=== PATIENT | male | born 1950 | race Caucasian/White ===

== ENCOUNTER 2023-09-03 20:57 | Inpatient (IN) | payer MEDICARE, OTHER ==
[2023-09-03 21:27] LABS: ABG Base Excess -12.2 mmol/L; ABG HCO3 13 mmol/L (21-25); ABG Oxygen Saturation 100.7 % (94-97); ABG PCO2 26 mmHg (35-45); ABG PO2 400 mmHg (83-108); ABG TCO2 13 mmol/L (19-24); Allen Test Performed? Yes
--- NOTE | 2023-09-03 21:27 | ED ---
General Adult HPI - General Chief complaint: Shortness of Breath Stated complaint: BENJAMÍN Time Seen by Provider: 09/03/23 21:05 Source: patient, EMS Mode of arrival: EMS - History of Present Illness Initial comments: Dictation was produced using [employer] dictation software. please excuse any grammatical, word or spelling errors. Chief Complaint: 73-year-old male presents to the emergency department as a transfer from [place] for higher level of care History of Present Illness: Patient 73-year-old male he is a poor historian due to clinical status. Patient is a 73-year-old male presents to the ER via transfer from [facility]. According to transfer documentation patient was brought here for worsening shortness of breath. He initially presented to [facility] where he was found to be altered. Apparently he has not gotten out of bed for several days. Patient had extensive workup performed at [facility]. He was found to have elevated lactic acid level 9.8. He had pH of 7.1 bicarb of 11 and pCO2 of 34.9. There was concern for metabolic acidosis. No white count. Elevated creatinine of 3.5 with a BUN of 33. Patient states he is short of breath. Denies any chest pain does he does report history of coronary artery disease. He is currently on BiPAP. Chest x-ray shows airspace infiltrate left lung base. Patient according documentation was given a dose of Rocephin, IV fluids and Ativan. The ROS documented in this emergency department record has been reviewed and confirmed by me. Those systems with pertinent positive or negative responses have been documented in the HPI. All other systems are other negative and/or noncontributory. - Related Data Allergies Allergy/AdvReac Type Severity Reaction Status Date / Time No Known Allergies Allergy Verified 09/03/23 21:10 Review of Systems ROS Statement: Those systems with pertinent positive or pertinent negative responses have been documented in the HPI. ROS Other: All systems not noted in ROS Statement are negative. General Exam - General Exam Comments Initial Comments: PHYSICAL EXAM: General Impression: Lethargic, distressed male, dyspneic HEENT: Normocephalic atraumatic, extra-ocular movements intact, pupils equal and reactive to light bilaterally, mucous membranes moist. Cardiovascular: Heart regular rate and rhythm Chest: Tachypneic, 2 word sentences, diffuse rhonchi with auscultation to the lungs bilaterally Abdomen: abdomen soft, non-tender, non-distended, no organomegaly Musculoskeletal: Pulses present and equal in all extremities, no peripheral edema Motor: no focal deficits noted Neurological: CN II-XII grossly intact, no focal motor or sensory deficits noted Skin: Intact with no visualized rashes Psych: Normal affect and mood Course Vital Signs 09/03/23 20:58 Temperature 97.9 F Pulse Rate 124 H Respiratory 42 H Rate Blood Pressure 138/83 O2 Sat by Pulse 91 L Oximetry - Reevaluation(s) Reevaluation #1: 09/03/23 23:02 Case was discussed with Jose, midlevel provider for the ICU at approximately 11:00 PM. He will come and evaluate the patient to determine if patient meets ICU admission criteria. EKG Findings - EKG Comments: EKG Findings:: My EKG interpretation: Ventricular rate 124, SC interval 155, cures 99, QTc 47 interpretation of rhythm is difficult secondary to artifact. There does appear to be a P wave for every QRS suggesting sinus arrhythmia despite irregularity.. No SC prolongation, no QTC prolongation, no ST or T-wave changes noted. EKG for comparison. EKG is nonspecific Procedures - Intubation Sedative: Etomidate Paralytic: Rocuronium Laryngoscope: fiber optic video scope Size: 3 ET Tube Size: 8 ET Tube Uncuffed: Yes Tube Secured Depth (cm): 24 Tube Secured Location: lips Tube Placement Confirmation: visualized tube passing through cords, equal breath sounds bilaterally, no breath sounds over epigastrium, confirmation by capnometry Patient Tolerated Procedure: well Intubation Complications: none - Sepsis Sepsis Focused Exam #1 Time Sepsis Criteria Met: 23:36 Sepsis Focused Exam Date: 09/03/23 Sepsis Focused Exam Time: 23:36 Sepsis Focused Exam Complete: Yes Vital Signs & RN Notes Reviewed: Yes Capillary Refill: < 2 Seconds: Fingers, Toes Peripheral Pulses: Normal: Radial (R), Radial (L), Posterior Tibialis (R), Posterior Tibialis (L), Dorsalis Pedis (R), Dorsalis Pedis (L) Skin Color: Normal for Patient Respiratory Exam: rhonchi Cardiovascular Exam: tachycardia Medical Decision Making - Medical Decision Making Was pt. sent in by a medical professional or institution (, PA, GIS PHYSICAL SCIENTIST, urgent care, hospital, or longterm...) When possible be specific @ -Sent in outside emergency department Did you speak to anyone other than the patient for history (EMS, parent, family, police, friend...)? What history was obtained from this source @ -No Did you review nursing and triage notes (agree or disagree)? Why? @ -I reviewed and agree with nursing and triage notes Were old charts reviewed (outside hosp., previous admission, EMS record, old EKG, old radiological studies, urgent care reports/EKG's, longterm records)? Report findings @ -Transfer documentation reviewed from [place] Differential Diagnosis (chest pain, altered mental status, abdominal pain women, abdominal pain men, vaginal bleeding, musculoskeletal, weakness, fever, dyspnea, syncope, headache, dizziness, GI bleed, back pain, seizure, CVA, palpatations, mental health)? @ -Differential Dyspnea: Coronary syndrome, arrhythmia, tamponade, asthma, COPD, pulmonary embolism, pneumonia, pneumothorax, pulmonary effusion, anaphylaxis, diabetic ketoacidosis, flailed chest, pulmonary contusion, diaphragmatic rupture, anemia, neuromuscular, this is not meant to be an all-inclusive list. EKG interpreted by me (3pts min.). @ -See above X-rays interpreted by me (1pt min.). @ -X-ray of the chest shows no acute processes CT interpreted by me (1pt min.). @ -None done U/S interpreted by me (1pt. min.). @ -None done What testing was considered but not performed or refused? (CT, X-rays, U/S, labs)? Why? @ -None What meds were considered but not given or refused? Why? @ -None Was smoking cessation discussed for >3mins.? @ -No Were there social determinants of health that impacted care today? How? (Homelessness, low income, unemployed, alcoholism, drug addiction, transportation, low edu. Level, literacy, decrease access to med. care, nursing home, rehab)? @ -No Was there de-escalation of care discussed even if they declined (Discuss DNR or withdrawal of care, Hospice)? DNR status @ -No What co-morbidities impacted this encounter? (DM, HTN, Smoking, COPD, CAD, Cancer, CVA, ARF, Chemo, Hep., AIDS, mental health diagnosis, sleep apnea, morbid obesity)? @ -None Was patient admitted / discharged? Hospital course, mention meds given and route, prescriptions, significant lab abnormalities, going to OR and other pertinent info. @ -73-year-old male with unknown past medical history presents to the ER for respiratory failure, altered mental status. He is a transfer from [facility]. Transfer documentation was reviewed. Patient found to have significant lactic acidosis, elevated troponin. There is concern of perhaps may be some acute left lower lung infiltrate. Vital signs upon arrival shows heart rate of 124, respiratory to 42. Patient 91% on BiPAP. ABGs obtained showing metabolic acidosis. Laboratory evaluation obtained. Leukocytosis of 23.6 of unclear . Coag panel is unremarkable. Metabolic panel shows bicarb of 12 w ith a gap of 15, lactic acidosis of 6.9. Elevated renal function creatinine 3.61 with unknown baseline renal function. Troponin 0.082, brain nitric peptide is 13,700. X-ray does not show any abnormalities. Patient given bicarb IV fluids and monitored in the ER for approximately 2 hours and 30 minutes. Reevaluated bedside at 1120 p.m. Patient's respiratory condition did not significantly improve. Given that patient significantly dyspneic there is concern that patient would have worsening respiratory failure. Decision was made along with ICU team to have patient intubated. Code status was discussed with patient prior to intubation he states that he is full code. Patient on bicarb drip. Given broad-spectrum antibiotics. Did you discuss the management of the patient with other professionals (professionals i.e. , PA, GIS PHYSICAL SCIENTIST, lab, RT, psych nurse, social media designer, computer support specialist, teacher, ordnance corps officer, upper caser)? Give summary @ -See above Was critical care preformed (if so, how long)? @ -yes, 77 minutes Undiagnosed new problem with uncertain prognosis? @ -No Drug Therapy requiring intensive monitoring for toxicity (Heparin, Nitro, Insulin, Cardizem)? @ -No Were any procedures done? @ -See above Diagnosis/symptom? Acute, or Chronic, or Acute on Chronic? Uncomplicated (without systemic symptoms) or Complicated (systemic symptoms)? @ -Respiratory failure Side effects of treatment? @ -No Exacerbation, Progression, or Severe Exacerbation? @ -No Poses a threat to life or bodily function? How? (Chest pain, [place], [place], pneumonia, PE, COPD, DKA, ARF, appy, cholecystitis, CVA, Diverticulitis, Homicidal, Suicidal, threat to staff... and all critical care pts) @ -yes - Lab Data Result diagrams: 09/03/23 21:11 09/03/23 21:11 Lab Results 09/03/23 09/03/23 09/03/23 Range/Units 21:11 21:11 21:11 WBC 23.6 H (3.8-10.6) k/uL RBC 4.62 (4.30-5.90) m/uL Hgb 11.0 L (13.0-17.5) gm/dL Hct 36.7 L (39.0-53.0) % MCV 79.6 L (80.0-100.0) fL MCH 23.7 L (25.0-35.0) pg MCHC 29.8 L (31.0-37.0) g/dL RDW 16.0 H (11.5-15.5) % Plt Count 164 (150-450) k/uL MPV 8.2 Neutrophils % 90 % Lymphocytes % 3 % Monocytes % 5 % Eosinophils % 0 % Basophils % 0 % Neutrophils # 21.3 H (1.3-7.7) k/uL Lymphocytes # 0.6 L (1.0-4.8) k/uL Monocytes # 1.2 H (0-1.0) k/uL Eosinophils # 0.0 (0-0.7) k/uL Basophils # 0.1 (0-0.2) k/uL Hypochromasia Marked Microcytosis Slight PT 12.4 (10.0-12.5) sec INR 1.2 H (<1.2) APTT 24.9 (22.0-30.0) sec Sample Site ABG pH (7.35-7.45) ABG pCO2 (35-45) mmHg ABG pO2 (83-108) mmHg ABG HCO3 (21-25) mmol/L ABG Total CO2 (19-24) mmol/L ABG O2 Saturation (94-97) % ABG Base Excess mmol/L Aleksander Test FiO2 % Sodium 136 L (137-145) mmol/L Potassium 3.6 (3.5-5.1) mmol/L Chloride 109 H (98-107) mmol/L Carbon Dioxide 12 L (22-30) mmol/L Anion Gap 15 mmol/L BUN 32 H (9-20) mg/dL Creatinine 3.61 H (0.66-1.25) mg/dL Est GFR (CKD-EPI)AfAm 18 (>60 ml/min/1.73 sqM) Est GFR (CKD-EPI)NonAf 16 (>60 ml/min/1.73 sqM) Glucose 140 H (74-99) mg/dL Plasma Lactic Acid Bryant (0.7-2.0) mmol/L Calcium 7.5 L (8.4-10.2) mg/dL Magnesium 2.1 (1.6-2.3) mg/dL Total Bilirubin 1.2 (0.2-1.3) mg/dL AST 48 (17-59) U/L ALT 31 (4-49) U/L Alkaline Phosphatase 121 (38-126) U/L Troponin I (0.000-0.034) ng/mL NT-Pro-B Natriuret Pep 51496 pg/mL Total Protein 6.2 L (6.3-8.2) g/dL Albumin 3.0 L (3.5-5.0) g/dL 09/03/23 09/03/23 09/03/23 Range/Units 21:11 21:11 21:22 WBC (3.8-10.6) k/uL RBC (4.30-5.90) m/uL Hgb (13.0-17.5) gm/dL Hct (39.0-53.0) % MCV (80.0-100.0) fL MCH (25.0-35.0) pg MCHC (31.0-37.0) g/dL RDW (11.5-15.5) % Plt Count (150-450) k/uL MPV Neutrophils % % Lymphocytes % % Monocytes % % Eosinophils % % Basophils % % Neutrophils # (1.3-7.7) k/uL Lymphocytes # (1.0-4.8) k/uL Monocytes # (0-1.0) k/uL Eosinophils # (0-0.7) k/uL Basophils # (0-0.2) k/uL Hypochromasia Microcytosis PT (10.0-12.5) sec INR (<1.2) APTT (22.0-30.0) sec Sample Site L Rad ABG pH 7.30 L (7.35-7.45) ABG pCO2 26 L (35-45) mmHg ABG pO2 400 H (83-108) mmHg ABG HCO3 13 L (21-25) mmol/L ABG Total CO2 13 L (19-24) mmol/L ABG O2 Saturation 100.7 H (94-97) % ABG Base Excess -12.2 mmol/L Aleksander Test Yes FiO2 100 % Sodium (137-145) mmol/L Potassium (3.5-5.1) mmol/L Chloride (98-107) mmol/L Carbon Dioxide (22-30) mmol/L Anion Gap mmol/L BUN (9-20) mg/dL Creatinine (0.66-1.25) mg/dL Est GFR (CKD-EPI)AfAm (>60 ml/min/1.73 sqM) Est GFR (CKD-EPI)NonAf (>60 ml/min/1.73 sqM) Glucose (74-99) mg/dL Plasma Lactic Acid Bryant 6.9 H* (0.7-2.0) mmol/L Calcium (8.4-10.2) mg/dL Magnesium (1.6-2.3) mg/dL Total Bilirubin (0.2-1.3) mg/dL AST (17-59) U/L ALT (4-49) U/L Alkaline Phosphatase (38-126) U/L Troponin I 0.082 H* (0.000-0.034) ng/mL NT-Pro-B Natriuret Pep pg/mL Total Protein (6.3-8.2) g/dL Albumin (3.5-5.0) g/dL Disposition Clinical Impression: Respiratory failure Disposition: ADMITTED IP TO THIS [facility] Condition: Critical Referrals: Nonstaff,Physician [Primary Care Provider] - 1-2 days Decision Time: 22:29
[2023-09-03] MEDS: DEXTROSE 5% IN WATER 1,000 ML with SODIUM BICARB (1 MEQ/ML) 150 ML IV SCH (21:44)
[2023-09-03] MEDS ORDERED: VANCOMYCIN IV PER PHARMACY 1 EACH MISC MISCELLANE PRN (21:45)
[2023-09-03] MEDS: SODIUM BICARB 8.4% 50 ML SYR (1 MEQ/ML) IV STA ×2 (21:47→23:02)
--- NOTE | 2023-09-03 21:51 | XR ---
EXAMINATION TYPE: XR chest 1V portable DATE OF EXAM: 09/03/2023 Comparison: None Clinical History: 73-year-old male with shortness of breath, dyspnea Findings: Heart mildly enlarged. Limited by body habitus. Tortuous/ectatic thoracic aorta. Low lung volumes wit h crowded vascular markings. Mild patchy interstitial densities in the bilateral lower lungs. No pleu ral effusion. Impression: 1. Limited by body habitus and hypoventilatory changes. Mild patchy densities in the lower lungs coul d represent atelectasis or early infiltrates. 2. Borderline heart size.
[2023-09-03 21:53] LABS: AST 48 U/L (17-59); African American GFR (CKD) 18 (>60 ml/min/1.73 sqM); Alkaline Phosphatase 121 U/L (38-126); Anion Gap 15 mmol/L; Blood Urea Nitrogen 32 mg/dL (9-20); Calcium 7.5 mg/dL (8.4-10.2); Carbon Dioxide 12 mmol/L (22-30); Chloride 109 mmol/L (98-107); Glucose 140 mg/dL (74-99); Magnesium 2.1 mg/dL (1.6-2.3); Non-African American GFR(CKD) 16 (>60 ml/min/1.73 sqM); Potassium 3.6 mmol/L (3.5-5.1); Sodium 136 mmol/L (137-145); Total Bilirubin 1.2 mg/dL (0.2-1.3); Total Protein 6.2 g/dL (6.3-8.2)
[2023-09-03] MEDS: PIPERACILLIN-TAZOBACTAM 3.375 GM in SODIUM CHLORIDE 0.9% 100 ML IVPB SCH (21:53)
[2023-09-03] MEDS: SODIUM CHLORIDE 0.9% 1,000 ML IV STA (21:56)
[2023-09-03 21:58] LABS: NT-Pro-B-Type Natriuretic Pept 13700 pg/mL
[2023-09-03 22:00] LABS: ALT 31 U/L (4-49)
[2023-09-03 22:10] LABS: Basophils # (A) 0.1 k/uL (0-0.2); Basophils % (A) 0 %; Eosinophils % (A) 0 %; HCT 36.7 % (39.0-53.0); Hypochromasia Marked; Lymphocytes # (A) 0.6 k/uL (1.0-4.8); Lymphocytes % (A) 3 %; MCH 23.7 pg (25.0-35.0); MCHC 29.8 g/dL (31.0-37.0); MCV 79.6 fL (80.0-100.0); Mean Platelet Volume 8.2; Microcytosis Slight; Monocytes # (A) 1.2 k/uL (0-1.0); Monocytes % (A) 5 %; Neutrophils # (A) 21.3 k/uL (1.3-7.7); Neutrophils % (A) 90 %; Platelet Count 164 k/uL (150-450); RBC 4.62 m/uL (4.30-5.90); WBC 23.6 k/uL (3.8-10.6)
[2023-09-03] MEDS: HEPARIN SOD,PORK IN 0.45% NACL 25,000 UNIT in 0.45% NACL 1 250ML.BAG IV SCH (23:05)
[2023-09-03 23:08] LABS: INR 1.2 (<1.2); Partial Thromboplastin Time 24.9 sec (22.0-30.0); Prothrombin Time 12.4 sec (10.0-12.5)
[2023-09-03] MEDS: HEPARIN SODIUM 1,000 UN/ML (10ML VL) IV ONE (23:10)
[2023-09-03] MEDS: ETOMIDATE 2 MG/ML 10 ML VIAL IVP STA (23:23)
[2023-09-03] MEDS: ROCURONIUM 10 MG/ML (5 ML VIAL) IV STA (23:24)
[2023-09-03] MEDS ORDERED: NALOXONE 0.4 MG/ML 1 ML VIAL IV PRN (23:30)
[2023-09-03] MEDS: SODIUM CHLORIDE 0.9% 1,000 ML IV SCH (23:41)
[2023-09-04 00:12] LABS: Appearance,Urine Turbid (Clear); Bacteria,Urine Few /hpf; Bilirubin,Urine Negative (Negative); Blood,Urine Large (Negative); Color,Urine Yellow; Glucose,Urine (UA) Trace (Negative); Ketones,Urine Negative (Negative); Leukocyte Esterase,Urine Large (Negative); Mucus,Urine Rare /hpf; Nitrite,Urine Negative (Negative); Protein,Urine 3+ (Negative); RBC,Urine 65 /hpf (0-5); Urobilinogen,Urine <2.0 mg/dL (<2.0); WBC,Urine >182 /hpf (0-5)
--- NOTE | 2023-09-04 00:48 | ED ---
Medical Decision Making - Lab Data Result diagrams: 09/03/23 21:11 09/03/23 21:11 Lab Results 09/03/23 09/03/23 09/03/23 Range/Units 21:11 21:11 21:11 WBC 23.6 H (3.8-10.6) k/uL RBC 4.62 (4.30-5.90) m/uL Hgb 11.0 L (13.0-17.5) gm/dL Hct 36.7 L (39.0-53.0) % MCV 79.6 L (80.0-100.0) fL MCH 23.7 L (25.0-35.0) pg MCHC 29.8 L (31.0-37.0) g/dL RDW 16.0 H (11.5-15.5) % Plt Count 164 (150-450) k/uL MPV 8.2 Neutrophils % 90 % Lymphocytes % 3 % Monocytes % 5 % Eosinophils % 0 % Basophils % 0 % Neutrophils # 21.3 H (1.3-7.7) k/uL Lymphocytes # 0.6 L (1.0-4.8) k/uL Monocytes # 1.2 H (0-1.0) k/uL Eosinophils # 0.0 (0-0.7) k/uL Basophils # 0.1 (0-0.2) k/uL Hypochromasia Marked Microcytosis Slight PT 12.4 (10.0-12.5) sec INR 1.2 H (<1.2) APTT 24.9 (22.0-30.0) sec Sample Site ABG pH (7.35-7.45) ABG pCO2 (35-45) mmHg ABG pO2 (83-108) mmHg ABG HCO3 (21-25) mmol/L ABG Total CO2 (19-24) mmol/L ABG O2 Saturation (94-97) % ABG Base Excess mmol/L Aleksander Test FiO2 % Sodium 136 L (137-145) mmol/L Potassium 3.6 (3.5-5.1) mmol/L Chloride 109 H (98-107) mmol/L Carbon Dioxide 12 L (22-30) mmol/L Anion Gap 15 mmol/L BUN 32 H (9-20) mg/dL Creatinine 3.61 H (0.66-1.25) mg/dL Est GFR (CKD-EPI)AfAm 18 (>60 ml/min/1.73 sqM) Est GFR (CKD-EPI)NonAf 16 (>60 ml/min/1.73 sqM) Glucose 140 H (74-99) mg/dL Lactic Ac Sepsis Rflx Plasma Lactic Acid Bryant (0.7-2.0) mmol/L Calcium 7.5 L (8.4-10.2) mg/dL Magnesium 2.1 (1.6-2.3) mg/dL Total Bilirubin 1.2 (0.2-1.3) mg/dL AST 48 (17-59) U/L ALT 31 (4-49) U/L Alkaline Phosphatase 121 (38-126) U/L Troponin I (0.000-0.034) ng/mL NT-Pro-B Natriuret Pep 97967 pg/mL Total Protein 6.2 L (6.3-8.2) g/dL Albumin 3.0 L (3.5-5.0) g/dL 09/03/23 09/03/23 09/03/23 Range/Units 21:11 21:11 21:22 WBC (3.8-10.6) k/uL RBC (4.30-5.90) m/uL Hgb (13.0-17.5) gm/dL Hct (39.0-53.0) % MCV (80.0-100.0) fL MCH (25.0-35.0) pg MCHC (31.0-37.0) g/dL RDW (11.5-15.5) % Plt Count (150-450) k/uL MPV Neutrophils % % Lymphocytes % % Monocytes % % Eosinophils % % Basophils % % Neutrophils # (1.3-7.7) k/uL Lymphocytes # (1.0-4.8) k/uL Monocytes # (0-1.0) k/uL Eosinophils # (0-0.7) k/uL Basophils # (0-0.2) k/uL Hypochromasia Microcytosis PT (10.0-12.5) sec INR (<1.2) APTT (22.0-30.0) sec Sample Site L Rad ABG pH 7.30 L (7.35-7.45) ABG pCO2 26 L (35-45) mmHg ABG pO2 400 H (83-108) mmHg ABG HCO3 13 L (21-25) mmol/L ABG Total CO2 13 L (19-24) mmol/L ABG O2 Saturation 100.7 H (94-97) % ABG Base Excess -12.2 mmol/L Aleksander Test Yes FiO2 100 % Sodium (137-145) mmol/L Potassium (3.5-5.1) mmol/L Chloride (98-107) mmol/L Carbon Dioxide (22-30) mmol/L Anion Gap mmol/L BUN (9-20) mg/dL Creatinine (0.66-1.25) mg/dL Est GFR (CKD-EPI)AfAm (>60 ml/min/1.73 sqM) Est GFR (CKD-EPI)NonAf (>60 ml/min/1.73 sqM) Glucose (74-99) mg/dL Lactic Ac Sepsis Rflx Plasma Lactic Acid Bryant 6.9 H* (0.7-2.0) mmol/L Calcium (8.4-10.2) mg/dL Magnesium (1.6-2.3) mg/dL Total Bilirubin (0.2-1.3) mg/dL AST (17-59) U/L ALT (4-49) U/L Alkaline Phosphatase (38-126) U/L Troponin I 0.082 H* (0.000-0.034) ng/mL NT-Pro-B Natriuret Pep pg/mL Total Protein (6.3-8.2) g/dL Albumin (3.5-5.0) g/dL 09/03/23 Range/Units 21:53 WBC (3.8-10.6) k/uL RBC (4.30-5.90) m/uL Hgb (13.0-17.5) gm/dL Hct (39.0-53.0) % MCV (80.0-100.0) fL MCH (25.0-35.0) pg MCHC (31.0-37.0) g/dL RDW (11.5-15.5) % Plt Count (150-450) k/uL MPV Neutrophils % % Lymphocytes % % Monocytes % % Eosinophils % % Basophils % % Neutrophils # (1.3-7.7) k/uL Lymphocytes # (1.0-4.8) k/uL Monocytes # (0-1.0) k/uL Eosinophils # (0-0.7) k/uL Basophils # (0-0.2) k/uL Hypochromasia Microcytosis PT (10.0-12.5) sec INR (<1.2) APTT (22.0-30.0) sec Sample Site ABG pH (7.35-7.45) ABG pCO2 (35-45) mmHg ABG pO2 (83-108) mmHg ABG HCO3 (21-25) mmol/L ABG Total CO2 (19-24) mmol/L ABG O2 Saturation (94-97) % ABG Base Excess mmol/L Aleksander Test FiO2 % Sodium (137-145) mmol/L Potassium (3.5-5.1) mmol/L Chloride (98-107) mmol/L Carbon Dioxide (22-30) mmol/L Anion Gap mmol/L BUN (9-20) mg/dL Creatinine (0.66-1.25) mg/dL Est GFR (CKD-EPI)AfAm (>60 ml/min/1.73 sqM) Est GFR (CKD-EPI)NonAf (>60 ml/min/1.73 sqM) Glucose (74-99) mg/dL Lactic Ac Sepsis Rflx Y Plasma Lactic Acid Bryant (0.7-2.0) mmol/L Calcium (8.4-10.2) mg/dL Magnesium (1.6-2.3) mg/dL Total Bilirubin (0.2-1.3) mg/dL AST (17-59) U/L ALT (4-49) U/L Alkaline Phosphatase (38-126) U/L Troponin I (0.000-0.034) ng/mL NT-Pro-B Natriuret Pep pg/mL Total Protein (6.3-8.2) g/dL Albumin (3.5-5.0) g/dL Disposition Clinical Impression: Respiratory failure Disposition: ADMITTED IP TO THIS HOSP Condition: Critical Procedures - Sepsis Sepsis Focused Exam #1 Time Sepsis Criteria Met: 23:36
--- NOTE | 2023-09-04 00:51 | ED ---
Medical Decision Making - Lab Data Result diagrams: 09/03/23 21:11 09/03/23 21:11 Lab Results 09/03/23 09/03/23 09/03/23 Range/Units 21:11 21:11 21:11 WBC 23.6 H (3.8-10.6) k/uL RBC 4.62 (4.30-5.90) m/uL Hgb 11.0 L (13.0-17.5) gm/dL Hct 36.7 L (39.0-53.0) % MCV 79.6 L (80.0-100.0) fL MCH 23.7 L (25.0-35.0) pg MCHC 29.8 L (31.0-37.0) g/dL RDW 16.0 H (11.5-15.5) % Plt Count 164 (150-450) k/uL MPV 8.2 Neutrophils % 90 % Lymphocytes % 3 % Monocytes % 5 % Eosinophils % 0 % Basophils % 0 % Neutrophils # 21.3 H (1.3-7.7) k/uL Lymphocytes # 0.6 L (1.0-4.8) k/uL Monocytes # 1.2 H (0-1.0) k/uL Eosinophils # 0.0 (0-0.7) k/uL Basophils # 0.1 (0-0.2) k/uL Hypochromasia Marked Microcytosis Slight PT 12.4 (10.0-12.5) sec INR 1.2 H (<1.2) APTT 24.9 (22.0-30.0) sec Sample Site ABG pH (7.35-7.45) ABG pCO2 (35-45) mmHg ABG pO2 (83-108) mmHg ABG HCO3 (21-25) mmol/L ABG Total CO2 (19-24) mmol/L ABG O2 Saturation (94-97) % ABG Base Excess mmol/L Aleksander Test FiO2 % Sodium 136 L (137-145) mmol/L Potassium 3.6 (3.5-5.1) mmol/L Chloride 109 H (98-107) mmol/L Carbon Dioxide 12 L (22-30) mmol/L Anion Gap 15 mmol/L BUN 32 H (9-20) mg/dL Creatinine 3.61 H (0.66-1.25) mg/dL Est GFR (CKD-EPI)AfAm 18 (>60 ml/min/1.73 sqM) Est GFR (CKD-EPI)NonAf 16 (>60 ml/min/1.73 sqM) Glucose 140 H (74-99) mg/dL Lactic Ac Sepsis Rflx Plasma Lactic Acid Bryant (0.7-2.0) mmol/L Calcium 7.5 L (8.4-10.2) mg/dL Magnesium 2.1 (1.6-2.3) mg/dL Total Bilirubin 1.2 (0.2-1.3) mg/dL AST 48 (17-59) U/L ALT 31 (4-49) U/L Alkaline Phosphatase 121 (38-126) U/L Troponin I (0.000-0.034) ng/mL NT-Pro-B Natriuret Pep 66916 pg/mL Total Protein 6.2 L (6.3-8.2) g/dL Albumin 3.0 L (3.5-5.0) g/dL 09/03/23 09/03/23 09/03/23 Range/Units 21:11 21:11 21:22 WBC (3.8-10.6) k/uL RBC (4.30-5.90) m/uL Hgb (13.0-17.5) gm/dL Hct (39.0-53.0) % MCV (80.0-100.0) fL MCH (25.0-35.0) pg MCHC (31.0-37.0) g/dL RDW (11.5-15.5) % Plt Count (150-450) k/uL MPV Neutrophils % % Lymphocytes % % Monocytes % % Eosinophils % % Basophils % % Neutrophils # (1.3-7.7) k/uL Lymphocytes # (1.0-4.8) k/uL Monocytes # (0-1.0) k/uL Eosinophils # (0-0.7) k/uL Basophils # (0-0.2) k/uL Hypochromasia Microcytosis PT (10.0-12.5) sec INR (<1.2) APTT (22.0-30.0) sec Sample Site L Rad ABG pH 7.30 L (7.35-7.45) ABG pCO2 26 L (35-45) mmHg ABG pO2 400 H (83-108) mmHg ABG HCO3 13 L (21-25) mmol/L ABG Total CO2 13 L (19-24) mmol/L ABG O2 Saturation 100.7 H (94-97) % ABG Base Excess -12.2 mmol/L Aleksander Test Yes FiO2 100 % Sodium (137-145) mmol/L Potassium (3.5-5.1) mmol/L Chloride (98-107) mmol/L Carbon Dioxide (22-30) mmol/L Anion Gap mmol/L BUN (9-20) mg/dL Creatinine (0.66-1.25) mg/dL Est GFR (CKD-EPI)AfAm (>60 ml/min/1.73 sqM) Est GFR (CKD-EPI)NonAf (>60 ml/min/1.73 sqM) Glucose (74-99) mg/dL Lactic Ac Sepsis Rflx Plasma Lactic Acid Bryant 6.9 H* (0.7-2.0) mmol/L Calcium (8.4-10.2) mg/dL Magnesium (1.6-2.3) mg/dL Total Bilirubin (0.2-1.3) mg/dL AST (17-59) U/L ALT (4-49) U/L Alkaline Phosphatase (38-126) U/L Troponin I 0.082 H* (0.000-0.034) ng/mL NT-Pro-B Natriuret Pep pg/mL Total Protein (6.3-8.2) g/dL Albumin (3.5-5.0) g/dL 09/03/23 Range/Units 21:53 WBC (3.8-10.6) k/uL RBC (4.30-5.90) m/uL Hgb (13.0-17.5) gm/dL Hct (39.0-53.0) % MCV (80.0-100.0) fL MCH (25.0-35.0) pg MCHC (31.0-37.0) g/dL RDW (11.5-15.5) % Plt Count (150-450) k/uL MPV Neutrophils % % Lymphocytes % % Monocytes % % Eosinophils % % Basophils % % Neutrophils # (1.3-7.7) k/uL Lymphocytes # (1.0-4.8) k/uL Monocytes # (0-1.0) k/uL Eosinophils # (0-0.7) k/uL Basophils # (0-0.2) k/uL Hypochromasia Microcytosis PT (10.0-12.5) sec INR (<1.2) APTT (22.0-30.0) sec Sample Site ABG pH (7.35-7.45) ABG pCO2 (35-45) mmHg ABG pO2 (83-108) mmHg ABG HCO3 (21-25) mmol/L ABG Total CO2 (19-24) mmol/L ABG O2 Saturation (94-97) % ABG Base Excess mmol/L Aleksander Test FiO2 % Sodium (137-145) mmol/L Potassium (3.5-5.1) mmol/L Chloride (98-107) mmol/L Carbon Dioxide (22-30) mmol/L Anion Gap mmol/L BUN (9-20) mg/dL Creatinine (0.66-1.25) mg/dL Est GFR (CKD-EPI)AfAm (>60 ml/min/1.73 sqM) Est GFR (CKD-EPI)NonAf (>60 ml/min/1.73 sqM) Glucose (74-99) mg/dL Lactic Ac Sepsis Rflx Y Plasma Lactic Acid Bryant (0.7-2.0) mmol/L Calcium (8.4-10.2) mg/dL Magnesium (1.6-2.3) mg/dL Total Bilirubin (0.2-1.3) mg/dL AST (17-59) U/L ALT (4-49) U/L Alkaline Phosphatase (38-126) U/L Troponin I (0.000-0.034) ng/mL NT-Pro-B Natriuret Pep pg/mL Total Protein (6.3-8.2) g/dL Albumin (3.5-5.0) g/dL Disposition Clinical Impression: Respiratory failure Disposition: ADMITTED IP TO THIS HOSP Condition: Critical Procedures - Central Line Placement Left IJ Consent Obtained: verbal consent, written consent, emergent situation Patient Placed on Monitor/Pulse Ox: Yes Prep: mask, gown, gloves Central Line Prep: Chlorhexidine scrub Local Anesthesia Used: Lidocaine 2% Ultrasound Used for Placement: Yes Central Line Lumen Inserted: triple Bloods Obtained for Lab: No Central Line Position: good blood return, all ports aspirated, flushed, capped, sutured in place with 3-0 nylon Dressing Applied: Tegaderm Post Procedure X-Ray: tip of catheter in good position Patient Tolerated Procedure: well Complications: none - Sepsis Sepsis Focused Exam #1 Time Sepsis Criteria Met: 23:36
[2023-09-04] MEDS: VANCOMYCIN 2,000 MG in SODIUM CHLORIDE 0.9% 500 ML 500 ML IVPB ONE ×2 (01:35→01:41)
[2023-09-04 02:16] LABS: Glucose,Whole Blood 217 mg/dL (70-110)
--- NOTE | 2023-09-04 02:23 | P.CNPUL ---
History of Present Illness Consult date: 09/04/23 Requesting physician: German Joy Reason for consult: other (ICU management) Chief complaint: Respiratory distress; transferred from [facility] History of present illness: Patient was transferred from [facility] late last night, reportedly for worsening shortness of breath. There is concerns for sepsis. According to the patient's son, patient has history of high cholesterol, stents in his heart, diabetes mellitus, COPD, troubles urinating and has chronic indwelling urinary catheter. He gets frequent urinary tract infections. I did talk to the patient's son over the phone. Patient has reportedly been feeling unwell over the last 2 to 3 days. Very weak and bed dependent. Has had reduced appetite, isolated vomiting episode. No reported fevers while at home. When the son came home from work yesterday afternoon, noted his father to be confused and "breat taryn funny". Patient was initially brought to [facility] for evaluation. Found to be profoundly acidotic and possibly septic. Transferred to [facility]. My initial evaluation was in conjunction with the ER provider, patient is in trauma bay 2. He is in some respiratory distress, on BiPAP. BiPAP settings are 14/5 and FiO2 of 50%. He is in respiratory distress. Respiratory rate is in the high 40s. He is alert, but unable to participate in interview due to his dyspnea. I recommended that the patient be intubated due to impending respiratory failure. Initial ventilator settings were assist-control, respiratory rate of 20, tidal volume 450, FiO2 of 100% and PEEP of 5. Postintubation chest x-ray shows endotracheal tube tip in adequate position above the arnold. Orogastric tube courses within the gastric fundus. There is now a left subclavian triple-lumen catheter with the tip near the cavoatrial junction. There are some minimal bibasilar opacities, likely atelectasis. No obvious focal infiltrates or pneumonia. No pleural effusions or pneumothoraces. His metabolic acidosis has marginally improved from outside facility. He received 2 A of sodium bicarbonate earlier in the emergency department, and placed on a sodium bicarb infusion at 50 MLS per hour.. Most recent ABG shows a PaO2 of 250, pCO2 of 45, pH of 7.22. Patient's respiratory rate was then increased to 24 and sodium bicarb drip infusion increased to 100 MLS per hour. There is obvious concern for sepsis, possible urinary source. Urinalysis demonstrating leukocytes and few bacteria. He is empirically covered on broad-spectrum antibiotics with Zosyn and vancomycin. Lactic acid level as high as 10 at outside facility and is down to 6.4. I am told he received a total of 3 L crystalloid fluid. Normal saline is currently infusing at 120 MLS per hour. Blood pressures currently normotensive. CBC: WBC count 23.6, hemoglobin 11, hematocrit 36.7, platelets 164. CMP: Sodium 136, potassium 3.6, chloride 109, serum bicarb 12, BUN 32, creatinine 3.61, glucose 140. LFTs not elevated. Troponin 0.082. NT proBNP 13,700. EKG shows sinus tachycardia with a rate of 124 bpm, frequent PACs. No obvious acute ischemic changes. He has previously been started on a heparin infusion. Currently afebrile. Prognosis is guarded. I did call and update patient's son on patient's current condition. He is a listed decision maker, and patient is currently a full code. Review of Systems ROS unobtainable: due to endotracheal tube Medications and Allergies Allergies Allergy/AdvReac Type Severity Reaction Status Date / Time No Known Allergies Allergy Verified 09/04/23 09:57 Physical Exam Vitals: Vital Signs Temp Pulse Resp BP Pulse Ox FiO2 09/04/23 01:11 137 H 24 99/61 100 09/04/23 01:08 80 09/04/23 01:02 70 09/03/23 23:34 100 09/03/23 23:33 133 H 18 127/74 100 09/03/23 20:58 97.9 F 124 H 42 H 138/83 91 L Intake and Output 09/03/23 09/03/23 09/04/23 14:59 22:59 06:59 Other: Weight 115.666 kg GENERAL EXAM: Anxious appearing, in respiratory distress, respiratory rate is in the high 40s with accessory muscle use and conversational dyspnea. Respiratory therapy is setting up for rapid sequence intubation by ER provider HEAD: Normocephalic and atraumatic EYES: Normal reaction of pupils, equal size. NOSE: Clear with pink turbinates. THROAT: No erythema or exudates. NECK: No masses, no JVD. CHEST: No chest wall deformity. LUNGS: Equal air entry with no crackles, wheeze, rhonchi or dullness. On BiPAP with current settings 14/5 and FiO2 of 50%. SpO2 is 92%. Respiratory rate is in the high 40s. Tidal volumes ranging from 900-1200. In respiratory distress. Accessory muscle use noted. CVS: S1 and S2 normal with soft systolic murmur, irregular rhythm. No other extra heart sounds ABDOMEN: Obese abdomen, active bowel sounds, soft without guarding or rigidity. Without palpable masses, hepatosplenomegaly, or abdominal distention. SPINE: No scoliosis or deformity SKIN: No rashes CENTRAL NERVOUS SYSTEM: No focal deficits, tone is normal in all 4 extremities. EXTREMITIES: There is no peripheral edema, clubbing, or cyanosis. Peripheral pulses are intact. Results - Laboratory Findings CBC and BMP: 09/04/23 09:35 09/04/23 03:32 ABG ABG pH 7.30 (7.35-7.45) L 09/03/23 21:22 ABG pCO2 26 mmHg (35-45) L 09/03/23 21:22 ABG pO2 400 mmHg (83-108) H 09/03/23 21:22 ABG O2 Saturation 100.7 % (94-97) H 09/03/23 21:22 PT/INR, D-dimer PT 12.4 sec (10.0-12.5) 09/03/23 21:11 INR 1.2 (<1.2) H 09/03/23 21:11 Abnormal lab findings: Abnormal Labs 09/03/23 09/03/23 09/03/23 21:11 21:11 21:11 WBC 23.6 H Hgb 11.0 L Hct 36.7 L MCV 79.6 L MCH 23.7 L MCHC 29.8 L RDW 16.0 H Neutrophils # 21.3 H Lymphocytes # 0.6 L Monocytes # 1.2 H INR 1.2 H ABG pH ABG pCO2 ABG pO2 ABG HCO3 ABG Total CO2 ABG O2 Saturation Sodium 136 L Chloride 109 H Carbon Dioxide 12 L BUN 32 H Creatinine 3.61 H Glucose 140 H Plasma Lactic Acid Bryant Calcium 7.5 L Troponin I Total Protein 6.2 L Albumin 3.0 L Urine Protein Urine Glucose (UA) Urine Blood Ur Leukocyte Esterase Urine RBC Urine WBC Urine WBC Clumps Urine Bacteria Urine Mucus 09/03/23 09/03/2309/02/24 21:11 21:11 21:22 WBC Hgb Hct MCV MCH MCHC RDW Neutrophils # Lymphocytes # Monocytes # INR ABG pH 7.30 L ABG pCO2 26 L ABG pO2 400 H ABG HCO3 13 L ABG Total CO2 13 L ABG O2 Saturation 100.7 H Sodium Chloride Carbon Dioxide BUN Creatinine Glucose Plasma Lactic Acid Bryant 6.9 H* Calcium Troponin I 0.082 H* Total Protein Albumin Urine Protein Urine Glucose (UA) Urine Blood Ur Leukocyte Esterase Urine RBC Urine WBC Urine WBC Clumps Urine Bacteria Urine Mucus 09/03/23 09/04/23 23:40 00:05 WBC Hgb Hct MCV MCH MCHC RDW Neutrophils # Lymphocytes # Monocytes # INR ABG pH ABG pCO2 ABG pO2 ABG HCO3 ABG Total CO2 ABG O2 Saturation Sodium Chloride Carbon Dioxide BUN Creatinine Glucose Plasma Lactic Acid Bryant 6.4 H* Calcium Troponin I Total Protein Albumin Urine Protein 3+ H Urine Glucose (UA) Trace H Urine Blood Large H Ur Leukocyte Esterase Large H Urine RBC 65 H Urine WBC >182 H Urine WBC Clumps Many H Urine Bacteria Few H Urine Mucus Rare H - Diagnostic Findings Chest x-ray: image reviewed Assessment and Plan Assessment: Suspect component of sepsis, source is currently under investigation Severe anion gap metabolic acidosis and lactic acidosis Possible urinary tract infection Acute dyspnea and impending respiratory failure, requiring intubation to the mechanical ventilator. Postintubation chest x-ray shows endotracheal tube tip in adequate position above the arnold. Orogastric tube courses within the gastric fundus. There is now a left subclavian triple-lumen catheter, with the tip near the cavoatrial junction. There are some minimal bibasilar opacities, likely atelectasis. No obvious focal infiltrates or pneumonia. No pleural effusions or pneumothoraces. Acute leukocytosis Sinus tachycardia, with frequent premature supraventricular complexes Suspect acute kidney injury, baseline creatinine is unknown Elevated troponin, likely secondary to type II LA and supply/demand, previously started on heparin infusion. History of frequent urinary tract infections and chronic indwelling urinary catheter History of prostate disorder History of coronary artery disease History of hyperlipidemia History of diabetes mellitus type 2 Obesity, with a BMI of 35.6 kg/m Plan: Patient's medications, labs, imaging reviewed Patient is currently intubated to mechanical ventilator, respiratory rate has been increased to 24 breaths/min. Continue on these current ventilator settings and repeat ABG later this morning Ventilator order set added. Utilize propofol for sedation to maintain a RASS of 0 to -1. Increase sodium bicarbonate infusion to 100 MLS per hour. Given additional 1 L normal saline bolus Blood pressure currently normotensive not requiring vasopressors Lactic acid level trending down, currently 6.4 Pancultures are pending. Preliminary urinalysis positive for leukocytes and few bacteria. Patient has history of frequent urinary tract infections and chronic indwelling urinary catheter. Exchange urinary catheter if not done so already. Patient is covered on broad-spectrum antibiotics Cardiology was asked to evaluate this patient in the emergency department. Troponins are trending. Patient was previously started on heparin infusion per protocol. Echocardiogram pending for the morning. My supervising physician, Dr. Godoy was updated about the patient's case, no further recommendations at this point in time. Patient will be admitted to the intensive care unit once bed available. Prognosis is guarded secondary to above. I did update patient's son in regards to recent developments and clinical course. I answered all of his questions in depth. Patient is a full code. I have personally seen and examined the patient, performed the documentation and the assessment and plan as written. Number of minutes spent on the visit:20 This is a joint evaluation was done along with the nurse practitioner. this evaluation was done more than 30 minutes. Critically ill male patient came in with urine tract infection and sepsis and multisystem organ failure. The patient is currently in the bed on the mechanical ventilator. The patient is hypotensive and in shock state. The patient was resuscitated with a total of 4.5 L of IV fluids with crystalloids and the patient is currently on a bicarb infusion. The patient is on norepinephrine running at 0.5 mcg/kg/min. Urine output is essentially minimal at this point in time. Garrison catheter is in place. The patient has sustained also an acute kidney injury. The patient remains on the mechanical ventilator. Sedated on propofol. Chest x-ray was noted and there is no acute pulm infiltration. Lactic acid levels have been downtrending for now. The patient is covered with broad-spectrum antibiotics with Zosyn and vancomycin. For now, we will continue ventilator support. Blood gases were noted. Chest x-ray was noted. Will continue fluid resuscitation. Will continue bicarb infusion. Will continue pressors and will add vasopressin. Will monitor renal function. Obtain ultrasound of kidneys. Will continue with same antibiotic coverage. On a separate note, earlier this morning the patient went into SVT. The patient was given adenosine and the patient was subsequently cardioverted. Currently in atrial fibrillation with rapid ventricular response and the patient is receiving amiodarone loading. She is currently on IV heparin drip. Will proceed with an echocardiogram. Lines have been established. Condition is critical. Will continue to follow make further recommendations based on his progress. Evaluation was done more than 30 minutes. Time with Patient: Greater than 30
[2023-09-04] MEDS: SODIUM CHLORIDE 0.9% 1,000 ML IV ONE ×3 (02:54→13:17)
--- NOTE | 2023-09-04 02:59 | XR ---
EXAM: XR Chest, 1 View CLINICAL HISTORY: ITS.REASON XR Reason: et tube placement TECHNIQUE: Frontal view of the chest. COMPARISON: 09/03/2023 IMPRESSION: The ET tube terminates 5.1 cm from the arnold
--- NOTE | 2023-09-04 03:10 | XR ---
EXAM: XR Chest, 1 View CLINICAL HISTORY: ITS.REASON XR Reason: central line placement TECHNIQUE: Frontal view of the chest. COMPARISON: No relevant prior studies available. IMPRESSION: Central line in good position. ET tube in good position.
--- NOTE | 2023-09-04 03:28 | P.HPIM ---
History of Present Illness H&P Date: 09/04/23 Patient is a 73-year-old male with a PMH of COPD, type II DM, CAD, BPH with chronic indwelling Garrison, hypertension, hyperlipidemia, who was transferred from [facility] for shortness of breath and sepsis. The history was obtained from the chart and from the ED provider as the patient was intubated at the time of interview and attempts to reach the family via phone were unsuccessful. The patient had reportedly been not feeling well for the past 2 to 3 days and had decreased oral intake and gradually worsening shortness of breath. The son who reportedly came home to find the patient in some respiratory distress at which point EMS was activated and the patient was taken to [facility]. The patient was noted to have severe acidosis with concerns for sepsis and impending respiratory failure and subsequently transferred to [facility]. Upon arrival the patient was in severe respiratory distress and hypoxic respiratory failure. He was subsequently intubated and placed on mechanical ventilation. Chest x-ray in the emergency room revealed no acute abnormalities aside from cardiomegaly. EKG revealed sinus tachycardia with APCs at 124 bpm with T wave flattening in the inferior leads III and aVF as reviewed by me. Laboratory evaluation was remarkable for WBC count 23.6, hemoglobin 11.0, platelet count 164, sodium 136, chloride 109, CO2 12, BUN 32, creatinine 3.61, lactic acid 6.9, anion gap 15, creatinine kinase 952, troponin 0.082, proBNP 13,700, with UA consistent with UTI. ED documentation reviewed and case discussed with ED provider. Review of systems: Unable to perform due to patient being intubated Physical examination: Vital signs reviewed General: Intubated elderly male, no distress, appears at stated age Derm: no unusual rashes/lesions, warm Head: atraumatic, normocephalic, symmetric Eyes: anicteric sclera, pupils equal round reactive to light ENT: Nose and ears atraumatic Neck: No cervical lymphadenopathy, trachea midline, supple Mouth: no lip lesion, mucus membranes moist Cardiovascular: S1S2 reg, no murmur, positive dorsalis pedis pulse bilateral, no edema Lungs: CTA bilateral, no rhonchi, no rales, no accessory muscle use Abdominal: soft, nontender to palpation, no guarding Ext: no gross muscle atrophy, no contractures, Neuro: unable to assess Psych: unable to assess Assessment: Acute hypoxic respiratory failure, unclear etiology, differential includes pneumonia versus PE Sepsis secondary to UTI Anion gap metabolic acidosis, suspected due to severe lactic acidosis Elevated troponin, suspect due to type II OK in setting of acute illness Kidney injury, acute versus chronic Imaging: Chest x-ray in the emergency room revealed no acute abnormalities aside from cardiomegaly. EKG revealed sinus tachycardia with APCs at 124 bpm with T wave flattening in the inferior leads III and aVF as reviewed by me. Data Review: Laboratory evaluation was remarkable for WBC count 23.6, hemoglobin 11.0, platelet count 164, sodium 136, chloride 109, CO2 12, BUN 32, creatinine 3.61, lactic acid 6.9, anion gap 15, creatinine kinase 952, troponin 0.082, proBNP 13,700, with UA consistent with UTI. Plan: Continue with high intensity heparin infusion for empiric treatment of PE at this time Unable to get CT angiogram due to patient's kidney injury Order VQ scan Patient initiated on bicarbonate infusion Admitted to medical ICU with telecommunications switch technician consulted and ventilator bundle Continue with broad-spectrum antibiotic coverage with vancomycin and Zosyn at this time Cardiology and nephrology consulted for kidney injury and elevated troponin Follow-up blood, urine, and sputum cultures Trend troponin DVT prophylaxis: Heparin infusion The patient is admitted with an anticipated greater than 2 midnight stay for evaluation of respiratory failure, sepsis CODE STATUS: Full Code Anticipated discharge place: Home Past Medical History - Past Family History Father Family Medical History: Unable to Obtain (due to patient being intubated) Medications and Allergies Allergies Allergy/AdvReac Type Severity Reaction Status Date / Time No Known Allergies Allergy Verified 09/03/23 21:10 Physical Exam Vitals: Vital Signs Temp Pulse Resp BP Pulse Ox FiO2 09/04/23 01:35 137 H 20 101/52 99 09/04/23 01:11 137 H 24 99/61 100 09/04/23 01:08 80 09/04/23 01:02 70 09/03/23 23:34 100 09/03/23 23:33 133 H 18 127/74 100 09/03/23 20:58 97.9 F 124 H 42 H 138/83 91 L Intake and Output 09/03/23 09/03/23 09/04/23 14:59 22:59 06:59 Other: Weight 115.666 kg Results CBC & Chem 7: 09/03/23 21:11 09/03/23 21:11 Labs: Abnormal Lab Results - Last 24 Hours (Table) 09/03/23 09/03/23 09/03/23 Range/Units 21:11 21:11 21:11 WBC 23.6 H (3.8-10.6) k/uL Hgb 11.0 L (13.0-17.5) gm/dL Hct 36.7 L (39.0-53.0) % MCV 79.6 L (80.0-100.0) fL MCH 23.7 L (25.0-35.0) pg MCHC 29.8 L (31.0-37.0) g/dL RDW 16.0 H (11.5-15.5) % Neutrophils # 21.3 H (1.3-7.7) k/uL Lymphocytes # 0.6 L (1.0-4.8) k/uL Monocytes # 1.2 H (0-1.0) k/uL INR 1.2 H (<1.2) ABG pH (7.35-7.45) ABG pCO2 (35-45) mmHg ABG pO2 (83-108) mmHg ABG HCO3 (21-25) mmol/L ABG Total CO2 (19-24) mmol/L ABG O2 Saturation (94-97) % Sodium 136 L (137-145) mmol/L Chloride 109 H (98-107) mmol/L Carbon Dioxide 12 L (22-30) mmol/L BUN 32 H (9-20) mg/dL Creatinine 3.61 H (0.66-1.25) mg/dL Glucose 140 H (74-99) mg/dL POC Glucose (mg/dL) (70-110) mg/dL Plasma Lactic Acid Bryant (0.7-2.0) mmol/L Calcium 7.5 L (8.4-10.2) mg/dL Creatine Kinase (55-170) U/L Troponin I (0.000-0.034) ng/mL Total Protein 6.2 L (6.3-8.2) g/dL Albumin 3.0 L (3.5-5.0) g/dL Urine Protein (Negative) Urine Glucose (UA) (Negative) Urine Blood (Negative) Ur Leukocyte Esterase (Negative) Urine RBC (0-5) /hpf Urine WBC (0-5) /hpf Urine WBC Clumps (None) /hpf Urine Bacteria (None) /hpf Urine Mucus (None) /hpf 09/03/23 09/03/23 09/03/23 Range/Units 21:11 21:11 21:11 WBC (3.8-10.6) k/uL Hgb (13.0-17.5) gm/dL Hct (39.0-53.0) % MCV (80.0-100.0) fL MCH (25.0-35.0) pg MCHC (31.0-37.0) g/dL RDW (11.5-15.5) % Neutrophils # (1.3-7.7) k/uL Lymphocytes # (1.0-4.8) k/uL Monocytes # (0-1.0) k/uL INR (<1.2) ABG pH (7.35-7.45) ABG pCO2 (35-45) mmHg ABG pO2 (83-108) mmHg ABG HCO3 (21-25) mmol/L ABG Total CO2 (19-24) mmol/L ABG O2 Saturation (94-97) % Sodium (137-145) mmol/L Chloride (98-107) mmol/L Carbon Dioxide (22-30) mmol/L BUN (9-20) mg/dL Creatinine (0.66-1.25) mg/dL Glucose (74-99) mg/dL POC Glucose (mg/dL) (70-110) mg/dL Plasma Lactic Acid Bryant 6.9 H* (0.7-2.0) mmol/L Calcium (8.4-10.2) mg/dL Creatine Kinase 952 H (55-170) U/L Troponin I 0.082 H* (0.000-0.034) ng/mL Total Protein (6.3-8.2) g/dL Albumin (3.5-5.0) g/dL Urine Protein (Negative) Urine Glucose (UA) (Negative) Urine Blood (Negative) Ur Leukocyte Esterase (Negative) Urine RBC (0-5) /hpf Urine WBC (0-5) /hpf Urine WBC Clumps (None) /hpf Urine Bacteria (None) /hpf Urine Mucus (None) /hpf 09/03/23 09/03/23 09/04/23 Range/Units 21:22 23:40 00:05 WBC (3.8-10.6) k/uL Hgb (13.0-17.5) gm/dL Hct (39.0-53.0) % MCV (80.0-100.0) fL MCH (25.0-35.0) pg MCHC (31.0-37.0) g/dL RDW (11.5-15.5) % Neutrophils # (1.3-7.7) k/uL Lymphocytes # (1.0-4.8) k/uL Monocytes # (0-1.0) k/uL INR (<1.2) ABG pH 7.30 L (7.35-7.45) ABG pCO2 26 L (35-45) mmHg ABG pO2 400 H (83-108) mmHg ABG HCO3 13 L (21-25) mmol/L ABG Total CO2 13 L (19-24) mmol/L ABG O2 Saturation 100.7 H (94-97) % Sodium (137-145) mmol/L Chloride (98-107) mmol/L Carbon Dioxide (22-30) mmol/L BUN (9-20) mg/dL Creatinine (0.66-1.25) mg/dL Glucose (74-99) mg/dL POC Glucose (mg/dL) (70-110) mg/dL Plasma Lactic Acid Bryant 6.4 H* (0.7-2.0) mmol/L Calcium (8.4-10.2) mg/dL Creatine Kinase (55-170) U/L Troponin I (0.000-0.034) ng/mL Total Protein (6.3-8.2) g/dL Albumin (3.5-5.0) g/dL Urine Protein 3+ H (Negative) Urine Glucose (UA) Trace H (Negative) Urine Blood Large H (Negative) Ur Leukocyte Esterase Large H (Negative) Urine RBC 65 H (0-5) /hpf Urine WBC >182 H (0-5) /hpf Urine WBC Clumps Many H (None) /hpf Urine Bacteria Few H (None) /hpf Urine Mucus Rare H (None) /hpf 09/04/23 Range/Units 02:15 WBC (3.8-10.6) k/uL Hgb (13.0-17.5) gm/dL Hct (39.0-53.0) % MCV (80.0-100.0) fL MCH (25.0-35.0) pg MCHC (31.0-37.0) g/dL RDW (11.5-15.5) % Neutrophils # (1.3-7.7) k/uL Lymphocytes # (1.0-4.8) k/uL Monocytes # (0-1.0) k/uL INR (<1.2) ABG pH (7.35-7.45) ABG pCO2 (35-45) mmHg ABG pO2 (83-108) mmHg ABG HCO3 (21-25) mmol/L ABG Total CO2 (19-24) mmol/L ABG O2 Saturation (94-97) % Sodium (137-145) mmol/L Chloride (98-107) mmol/L Carbon Dioxide (22-30) mmol/L BUN (9-20) mg/dL Creatinine (0.66-1.25) mg/dL Glucose (74-99) mg/dL POC Glucose (mg/dL) 217 H (70-110) mg/dL Plasma Lactic Acid Bryant (0.7-2.0) mmol/L Calcium (8.4-10.2) mg/dL Creatine Kinase (55-170) U/L Troponin I (0.000-0.034) ng/mL Total Protein (6.3-8.2) g/dL Albumin (3.5-5.0) g/dL Urine Protein (Negative) Urine Glucose (UA) (Negative) Urine Blood (Negative) Ur Leukocyte Esterase (Negative) Urine RBC (0-5) /hpf Urine WBC (0-5) /hpf Urine WBC Clumps (None) /hpf Urine Bacteria (None) /hpf Urine Mucus (None) /hpf
[2023-09-04 03:46] LABS: Basophils # (A) 0.1 k/uL (0-0.2); Basophils % (A) 0 %; Eosinophils % (A) 0 %; HCT 32.9 % (39.0-53.0); Hypochromasia Marked; Lymphocytes # (A) 0.8 k/uL (1.0-4.8); Lymphocytes % (A) 5 %; MCHC 30.4 g/dL (31.0-37.0); MCV 79.2 fL (80.0-100.0); Mean Platelet Volume 10.2; Microcytosis Slight; Monocytes # (A) 0.7 k/uL (0-1.0); Monocytes % (A) 5 %; Neutrophils # (A) 13.3 k/uL (1.3-7.7); Neutrophils % (A) 89 %; Platelet Count 150 k/uL (150-450); RBC 4.16 m/uL (4.30-5.90)
[2023-09-04] MEDS: IPRATROPIUM-ALBUTEROL 3 ML NEB INHALATION SCH (04:10)
[2023-09-04 04:53] LABS: African American GFR (CKD) 16 (>60 ml/min/1.73 sqM); Anion Gap 10 mmol/L; Blood Urea Nitrogen 36 mg/dL (9-20); Carbon Dioxide 18 mmol/L (22-30); Chloride 108 mmol/L (98-107); Glucose 208 mg/dL (74-99); Magnesium 2.1 mg/dL (1.6-2.3); Non-African American GFR(CKD) 14 (>60 ml/min/1.73 sqM); Potassium 4.3 mmol/L (3.5-5.1); Sodium 136 mmol/L (137-145)
[2023-09-04 06:12] LABS: Allen Test Performed? Yes
[2023-09-04 06:13] LABS: ABG HCO3 18 mmol/L (21-25); ABG PCO2 38 mmHg (35-45); ABG PH 7.29 (7.35-7.45); ABG PO2 124 mmHg (83-108); ABG TCO2 19 mmol/L (19-24)
[2023-09-04 06:14] LABS: Allen Test Performed? Yes
[2023-09-04 06:15] LABS: ABG PCO2 45 mmHg (35-45); ABG PH 7.22 (7.35-7.45); ABG PO2 250 mmHg (83-108)
[2023-09-04 06:16] LABS: ABG HCO3 18 mmol/L (21-25); ABG TCO2 20 mmol/L (19-24)
[2023-09-04] MEDS: NOREPINEPHRINE 4 MG in SODIUM CHLORIDE 0.9% 250 ML IV SCH (06:35)
--- NOTE | 2023-09-04 06:53 | P.PCN ---
Date of Procedure: 09/04/23 Preoperative Diagnosis: Sepsis, septic shock, acute hypoxemic respiratory failure Postoperative Diagnosis: Sepsis, septic shock, acute hypoxemic respiratory failure Procedure(s) Performed: Insertion of a left radial arterial line Indications for Procedure: Continuous blood pressure monitoring and frequent blood draws Description of Procedure: Informed consent was obtained, and a procedural timeout was performed . The patient was placed in supine position. The left radial region was prepared in a sterile fashion, and a sterile drape was applied. The left radial artery was palpated, easily cannulated, and a guidewire was placed. A Cook catheter was inserted over the guidewire, and the guidewire was removed. There was good arterial blood flow, good arterial waveform, and no complications. The line was secured with using a 3-0 silk suture. Arterial line insertion. This was a joint evaluation that was done along with the nurse practitioner. No complications.
[2023-09-04] MEDS: HEPARIN SODIUM 1,000 UN/ML (10ML VL) IV PRN (07:01)
[2023-09-04] MEDS: ADENOSINE 3 MG/ML 2 ML VIAL IVP ONE ×2 (09:45→09:48)
[2023-09-04 10:03] LABS: Basophils # (A) 0.1 k/uL (0-0.2); Basophils % (A) 0 %; Eosinophils # (A) 0.1 k/uL (0-0.7); Eosinophils % (A) 0 %; HGB 9.7 gm/dL (13.0-17.5); Hypochromasia Marked; Lymphocytes # (A) 0.8 k/uL (1.0-4.8); Lymphocytes % (A) 6 %; MCH 24.6 pg (25.0-35.0); MCHC 31.4 g/dL (31.0-37.0); MCV 78.5 fL (80.0-100.0); Mean Platelet Volume 10.1; Microcytosis Slight; Monocytes # (A) 0.7 k/uL (0-1.0); Monocytes % (A) 5 %; Neutrophils # (A) 12.2 k/uL (1.3-7.7); Neutrophils % (A) 87 %; Platelet Count 140 k/uL (150-450); Poikilocytosis Slight; RBC 3.96 m/uL (4.30-5.90); RDW 15.8 % (11.5-15.5)
[2023-09-04 10:27] LABS: African American GFR (CKD) 14 (>60 ml/min/1.73 sqM); Anion Gap 13 mmol/L; Blood Urea Nitrogen 36 mg/dL (9-20); Calcium 8.4 mg/dL (8.4-10.2); Carbon Dioxide 15 mmol/L (22-30); Chloride 112 mmol/L (98-107); Glucose 194 mg/dL (74-99); Non-African American GFR(CKD) 12 (>60 ml/min/1.73 sqM); Potassium 3.8 mmol/L (3.5-5.1); Sodium 140 mmol/L (137-145)
[2023-09-04] MEDS: PIPERACILLIN-TAZOBACTAM 3.375 GM in SODIUM CHLORIDE 0.9% 100 ML IVPB SCH (10:32)
[2023-09-04] MEDS: PANTOPRAZOLE 40 MG/10 ML VIAL IVP SCH (10:33)
[2023-09-04] MEDS: CHLORHEXIDINE GLUCONATE 15 ML CUP MUCOUS MEM SCH (10:33)
[2023-09-04] MEDS: DEXTROSE 5% IN WATER 100 ML with AMIODARONE 150 MG IV ONE (10:35)
[2023-09-04] MEDS: AMIODARONE 360 MG in DEXTROSE 5% IN WATER 200 ML IV ONE (10:38)
--- NOTE | 2023-09-04 11:01 | CA ---
Transthoracic Echo Report Name: Ismael Barahona Age: 73 Gender: M : 1950 Exam Date: 09/04/2023 08:12 Exam Location: [place] [facility] Ht (in): 72 Wt (lb): 255 Ordering Physician: German Joy DO Attending/Referring Phys: [id number], Benita Ice [employer] Server Fransisca Bui RDCS Procedure CPT: Indications: elevated bnp Cardiac Hx: Technical Quality: Very technically difficult study Contrast 1: Definity Total Dose (mL): 2 Contrast 2: Total Dose (mL): MEASUREMENTS (Male / Female) Normal Values 2D ECHO LV Diastolic Diameter PLAX 5.4 cm 4.2 - 5.9 / 3.9 - 5.3 cm LV Systolic Diameter PLAX 3.2 cm IVS Diastolic Thickness 1.3 cm 0.6 - 1.0 / 0.6 - 0.9 cm LVPW Diastolic Thickness 1.2 cm 0.6 - 1.0 / 0.6 - 0.9 cm LV Relative Wall Thickness 0.5 RV Internal Dim ED PLAX 3.7 cm LA Volume 36.7 cm??? 18 - 58 / 22 - 52 cm??? LA Volume Index 14.9 cm???/m??? 16 - 28 cm???/m??? M-MODE Aortic Root Diameter MM 4.4 cm DOPPLER AV Peak Velocity 128.1 cm/s AV Peak Gradient 6.6 mmHg MV Area PHT 2.6 cm??? Mitral E Point Velocity 69.9 cm/s Mitral A Point Velocity 99.8 cm/s Mitral E to A Ratio 0.7 MV Deceleration Time 287.7 ms FINDINGS Left Ventricle Left ventricular ejection fraction is estimated at 55-60 %. Left ventricular cavity size normal. Mildly increased left ventricular wall thickness. No obvious regional wall motion abnormalities. Right Ventricle Mild right ventricular dilatation. Unable to estimate the right ventricular systolic pressure. Right Atrium Right atrium not well visualized. Left Atrium Normal left atrial size. Mitral Valve Structurally normal mitral valve. Mitral valve not well visualized. Aortic Valve Aortic valve not well visualized. No aortic valve stenosis or regurgitation. Tricuspid Valve Tricuspid valve not well visualized. Pulmonic Valve Pulmonic valve not well visualized. Pericardium No pericardial effusion. Aorta Moderate aortic dilatation at the level of the sinuses of valsalva 44 mm CONCLUSIONS Technically difficult study. Definity ECHO contrast used for improved visualization of the endocardial borders (inadequate visualization of two or more contiguous segments). Normal left ventricle size and systolic function Very limited Doppler study Previewed by: Dr. Jessica Lopes MD (Electronically Signed) Final Date: 04 September 2023 11:00
[2023-09-04] MEDS: VASOPRESSIN 60 UNIT in SODIUM CHLORIDE 0.9% 150 ML IV SCH (11:10)
--- NOTE | 2023-09-04 11:32 | P.NPCON ---
History of Present Illness - Reason for Consult acute renal failure - History of Present Illness Reason for consultation: Acute kidney injury History of present illness: Patient is a 73-year-old male seen in renal consultation for acute kidney injury. Patient's creatinine on admission was 3.6 and is 4.57 today. Patient was brought to the hospital by the EMS due to shortness of breath and altered mental status. It is noted in the chart the patient was feeling weak for 2 to 3 days prior to admission. He was initially taken to [facility] and subsequently transferred here. He is currently intubated. Patient did receive 4 L normal saline IV bolus and is currently maintained on isotonic sodium bicarb and a drip. He is also on Levophed. Patient will now be started on vasopressin as well. Patient also went into A-fib and is now being started on amiodarone drip. Patient has history of diabetes. He was on lisinopril outpatient. Also on Jardiance. Urine output is low. It is noted the patient has a chronic Garrison catheter. He also has history of coronary disease with cardiac stenting. Vital signs -in A-fib, on vasopressor support. General: Resting in bed. HEENT: Intubated. LUNGS: Scattered rhonchi. HEART: Irregular rate and rhythm. ABDOMEN: No distention. EXTREMITITES: No edema. Past Medical History Past Medical History: Coronary Artery Disease (CAD), COPD, Diabetes Mellitus, Myocardial Infarction (SC), Prostate Disorder Last Myocardial Infarction Date:: unknown History of Any Multi-Drug Resistant Organisms: Unobtainable Past Anesthesia/Blood Transfusion Reactions: Unable to Obtain Past Psychological History: Unable to Obtain Smoking Status: Unknown if ever smoked - Past Family History Father Family Medical History: Unable to Obtain Medications and Allergies Home Medications Medication Instructions Recorded Confirmed Type Atorvastatin Calcium [Lipitor] 80 mg PO HS 09/04/23 09/04/23 History Diclofenac Sodium [Voltaren 2 gm TOPICAL QID 09/04/23 09/04/23 History Arthritis Pain 1% Gel] Empagliflozin [Jardiance] 25 mg PO DAILY 09/04/23 09/04/23 History Finasteride [Proscar] 5 mg PO DAILY 09/04/23 09/04/23 History Gabapentin [Neurontin] 400 mg PO TID 09/04/23 09/04/23 History Insulin Glargine,Hum.rec.anlog 10 units SQ HS 09/04/23 09/04/23 History [Lantus Solostar Pen] Liraglutide [Victoza 2-Crescencio] 1.8 mg SQ DAILY 09/04/23 09/04/23 History lisinopriL [Zestril] 2.5 mg PO DAILY 09/04/23 09/04/23 History polyethylene glycoL 3350 [Miralax] 17 gm PO DAILY PRN 09/04/23 09/04/23 History traMADol HCl [Ultram] 50 mg PO BID PRN 09/04/23 09/04/23 History Allergies Allergy/AdvReac Type Severity Reaction Status Date / Time No Known Allergies Allergy Verified 09/04/23 09:57 Physical Exam Vitals: Vital Signs Temp Pulse Resp BP Pulse Ox FiO2 09/04/23 11:20 50 09/04/23 09:27 124 H 09/04/23 09:17 124 H 09/04/23 07:42 50 09/04/23 07:00 124 H 38 H 114/60 96 09/04/23 06:45 33 H 81/32 98 09/04/23 06:30 126 H 41 H 83/71 97 09/04/23 06:22 50 09/04/23 06:15 122 H 39 H 82/72 99 09/04/23 06:00 128 H 39 H 89/79 100 09/04/23 05:45 123 H 35 H 85/67 100 09/04/23 05:30 125 H 34 H 108/87 09/04/23 05:16 125 H 38 H 123/69 94 L 09/04/23 05:00 122 H 33 H 139/72 98 09/04/23 04:45 123 H 39 H 123/78 96 09/04/23 04:30 33 H 123/78 09/04/23 04:19 120 H 09/04/23 04:10 116 H 28 H 145/94 100 09/04/23 04:09 70 09/04/23 04:07 70 09/04/23 04:00 117 H 29 H 113/56 100 70 09/04/23 03:50 117 H 27 H 113/56 100 09/04/23 03:40 118 H 22 137/72 100 09/04/23 03:30 114 H 25 H 112/65 99 09/04/23 03:20 123 H 25 H 112/65 100 09/04/23 03:10 121 H 28 H 105/62 100 09/04/23 03:00 126 H 21 113/61 100 09/04/23 02:50 129 H 19 113/61 99 09/04/23 02:40 130 H 9 L 106/59 99 09/04/23 02:30 100.3 F H 126 H 24 109/85 100 80 09/04/23 01:35 137 H 20 101/52 99 09/04/23 01:11 137 H 24 99/61 100 09/04/23 01:08 80 09/04/23 01:02 70 09/03/23 23:34 100 09/03/23 23:33 133 H 18 127/74 100 09/03/23 20:58 97.9 F 124 H 42 H 138/83 91 L Intake and Output 09/03/23 09/04/23 09/04/23 22:59 06:59 14:59 Intake Total 2068.046 562.419 Output Total 35 0 Balance 2033.046 562.419 Intake: IV 23 KVO 20 pressure bag 3 Intake, IV Titration 2068.046 539.419 Amount Dextrose 5% in Water 1, 400 100 000 ml @ 100 mls/hr IV . [id number] IRENE with Sodium Bicarb (1 Meq/ml) 150 ml Rx#:[id number] Heparin Sod,Pork in 0.45% 77.932 NaCl 25,000 unit In 0.45 % NaCl 1 250ml.bag @ 8.62 UNITS/KG/HR 9.97 mls/hr IV .Q24H IRENE Rx#: [id number] Norepinephrine 4 mg In 2.497 251.503 Sodium Chloride 0.9% 250 ml @ 0.03 MCG/KG/MIN 13. 221 mls/hr IV .[id number] IRENE Rx#:[id number] Sodium Chloride 0.9% 1, 1000 000 ml @ 999 mls/hr IV . Q1H1M ONE Rx#:[id number] Vancomycin 2,000 mg In 500 Sodium Chloride 0.9% 500 ml 500 ml @ 167 mls/hr IVPB ONCE ONE Rx#: [id number] Vasopressin 60 unit In 0.536 Sodium Chloride 0.9% 150 ml @ 0.03 UNITS/MIN 4.59 mls/hr IV .Q24H IRENE Rx#: [id number] propofoL 1,000 mg In 87.617 187.380 Empty Bag 1 bag @ 15 MCG/ KG/MIN 10.41 mls/hr IV . Q9H37M IRENE Rx#:[id number] Output: Urine 35 0 Other: Voiding Method Indwelling Catheter Weight 115.666 kg 113.6 kg ABP, PAP, CO, CI - Last 8 Hours Arterial Blood Pressure 114/44 Arterial Blood Pressure 100/44 Arterial Blood Pressure 82/42 Arterial Blood Pressure 92/42 Arterial Blood Pressure 90/40 Arterial Blood Pressure 105/43 Results - Lab Results Most recent lab results ABG pH 7.29 (7.35-7.45) L 09/04/23 05:53 ABG pCO2 38 mmHg (35-45) 09/04/23 05:53 ABG pO2 124 mmHg (83-108) H 09/04/23 05:53 ABG HCO3 18 mmol/L (21-25) L 09/04/23 05:53 ABG O2 Saturation 99.0 % (94-97) H 09/04/23 05:53 Calcium 8.4 mg/dL (8.4-10.2) 09/04/23 09:35 Magnesium 2.1 mg/dL (1.6-2.3) 09/04/23 03:32 09/04/23 09:35 09/04/23 09:35 Assessment and Plan Plan: Assessment: 1. Acute kidney injury secondary to ATN secondary to septic shock. Unknown baseline renal function. Creatinine 4.57 today. Oliguric. 2. Metabolic acidosis secondary to lactic acidosis and acute kidney injury. 3. Septic shock with concern for UTI. On vasopressor support and IV antibi otics. 4. Diabetes mellitus. 5. A-fib with RVR maintained on amiodarone drip. 6. Coronary disease with cardiac stenting. Plan: Maintain bicarb drip. Increase rate to 100 cc an hour. Wean FiO2 and vasopressors. Follow-up renal ultrasound. Follow-up cultures. Continue to assess daily for need for renal replacement therapy. No urgency at this time. Patient currently hemodynamically unstable. Preserved ejection fraction noted on echocardiogram. Thank you for the consultation. I will continue to follow the patient with you during his hospital stay.
[2023-09-04 11:36] LABS: Glucose,Whole Blood 200 mg/dL (70-110)
--- NOTE | 2023-09-04 11:37 | US ---
EXAMINATION TYPE: US kidneys/renal and bladder DATE OF EXAM: 09/04/2023 COMPARISON: NONE CLINICAL INDICATION: Male, 73 years old with history of septic and anuric; sepsis EXAM MEASUREMENTS: Right Kidney: 10.1x6.0x5.7 cm Left Kidney: 11.6x5.8x5.3 cm Avionics Systems Engineer notes: Exam limited by bowel gas, body habitus, edema, and vented pt. Unable to change po sitioning Right Kidney: large 2.1 cm shadowing echogenic focus superior pole. No hydronephrosis. Left Kidney: No hydronephrosis or masses seen Bladder: not visualized, pt. on cath Bilateral Jets seen: No IMPRESSION: 1. No hydronephrosis. 2. A 2.1 cm shadowing focus at the upper pole right kidney suggesting a large renal stone.
--- NOTE | 2023-09-04 11:46 | XR ---
EXAMINATION TYPE: XR chest 1V portable DATE OF EXAM: 09/04/2023 Comparison: 09/04/2023 Clinical History: 73-year-old male Tube placement Findings: ET tube and G-tube are satisfactory. Left CVC tip at the lower SVC. Heart is mildly enlarged. Mild in terstitial prominence may be technical or could reflect mild pulmonary vascular congestion. No nkechi consolidation or pleural effusion. Impression: Mild cardiomegaly. Similar interstitial prominence which could be technical or could reflect mild pul monary vascular congestion.
[2023-09-04] MEDS: ACETAMINOPHEN TAB 500 MG TAB PO PRN (14:37)
[2023-09-04] MEDS: AMIODARONE 450 MG in DEXTROSE 5% IN WATER 250 ML IV SCH (15:54)
[2023-09-04] MEDS: FUROSEMIDE 10 MG/ML 10 ML VIAL IV STA (17:26)
--- NOTE | 2023-09-04 18:38 | P.PN ---
Subjective Progress Note Date: 09/04/23 Principal diagnosis: Sepsis of unknown origin Possbile urinary tract infection Respiratory failure Severe high anion gap metabolic acidosis and lactic acidosis Ismael Barahona is a 73-year-old male has a history of COPD type 2 diabetes CAD with a stent BPH, chronic indwelling Garrison catheter, hypertension, hyperlipidemia. He was transferred from [facility] on 09/03 2023 evening for worsening shortness of breath. He was transferred to [facility] and was determined to be acidotic and septic. Pulmonolgy service was consulted and admitted to ICU. Patient was placed on BiPAP with settings 14/5 and FiO2 of 50%. Patient was then intubated and put on mechanical ventilation due to increasing respiratory requirements. Postintubation chest x- ray determined proper placement of ET tube, no evidence of pulmonary effusion, pneumonia, or pneumothorax. Patient received 2 A of sodium bicarbonate and placed on bicarb infusion at 50 mL/h. Patient was placed on broad-spectrum antibiotics with Zosyn and vancomycin. Lactic was found to be 6.4 at our facility. normal saline infused at 120 mL/h. CBC at that time was WBC count of 23.6 hemoglobin 11 hematocrit 36.7, platelets 6.4. CMP at that time was sodium 136, potassium 3.6, chloride 109, serum bicarb 12, BUN 32, creatinine 36.1, glucose 140. BNP 13,700. Patient was afebrile, and normotensive. He is full code. 09/03 Patient had 30 minute epidosde of SVT with RVR which converted to AFib. [facility] protocol was followed. Given adenosine 6mg bolus and two 12 mg boluses. Cardioversion occurred 3 times. Placed pacer pads, amiodarone IV 16.6 mL/h, vasopressin IV 4.59 mL/h, and norepinephrine IV 13.221 mg/h. Echocardiogam showed ejection fraction of 55 to 60%, normal ventricle size and systolic function, mild right ventricular dilatation unable to estimate right ventricular systolic pressure, right atrium not well-visualized, normal left atrial size, normal mitral valve, no aortic valve stenosis or regurgitation, tricuspid valve and pulmonic valve not well-visualized, no pericardial effusion, moderate aortic dilatation at the level of the sinuses of Valsalva. Chest xray showed mild card iomegaly similar interstitial prominence which could reflect mild pulmonary vascular congestion. ET tube and NG tube are satisfactory in place. Left CVC tip at the lower SVC. Patient has low urine output despite fluid resuscitation with normal saline. Renal ultrasound showed no hydronephrosis, kidney stone 2.1cm shadowing focus at the upper pole right kidney suggesting a large acute kidney stone. Neprhology consulted and advised no dialysis today and will continue to follow patient. Patient refractory to pressor medication. Gave Lasix 80mg IV one dose. Pending results for serum cortisol level. Patient febrile at 102F. Given acetaminophen 1g PO. Objective - Vital Signs Vital signs: Vital Signs Temp 99.1 F 09/04/23 16:00 Pulse 113 H 09/04/23 16:15 Resp 34 H 09/04/23 16:15 BP 98/54 09/04/23 16:15 Pulse Ox 98 09/04/23 16:15 FiO2 50 09/04/23 16:33 Intake & Output 09/03/23 09/04/23 09/04/23 18:59 06:59 18:59 Intake Total 2068.046 4889.792 Output Total 35 7 Balance 2033.046 4882.792 Weight 113.6 kg Intake: IV 140 KVO 110 pressure bag 30 Intake, IV Titration 2068.046 4749.792 Amount Amiodarone 450 mg In 250 Dextrose 5% in Water 250 ml @ 0.5 MG/MIN 16.667 mls/hr IV .Q15H IRENE Rx#: [id number] Dextrose 5% in Water 1, 400 100 000 ml @ 100 mls/hr IV . [id number] IRENE with Sodium Bicarb (1 Meq/ml) 150 ml Rx#:[id number] Dextrose 5% in Water 100 710 ml @ 618 mls/hr IV .Q10M ONE with Amiodarone 150 mg Rx#:[id number] Heparin Sod,Pork in 0.45% 77.932 NaCl 25,000 unit In 0.45 % NaCl 1 250ml.bag @ 8.62 UNITS/KG/HR 9.97 mls/hr IV .Q24H IRENE Rx#: [id number] Norepinephrine 4 mg In 2.497 1215.044 Sodium Chloride 0.9% 250 ml @ 0.03 MCG/KG/MIN 13. 221 mls/hr IV .B38P35H IRENE Rx#:[id number] Piperacillin-Tazobactam 3 100 .375 gm In Sodium Chloride 0.9% 100 ml @ 25 mls/hr IVPB Q12HR [facility] Rx #:[id number] Sodium Chloride 0.9% 1, 1000 000 ml @ 999 mls/hr IV . Q1H1M ONE Rx#:[id number] Sodium Chloride 0.9% 1, 2000 000 ml @ 999 mls/hr IV . Q1H1M ONE Rx#:[id number] Vancomycin 2,000 mg In 500 Sodium Chloride 0.9% 500 ml 500 ml @ 167 mls/hr IVPB ONCE ONE Rx#: [id number] Vasopressin 60 unit In 6.401 Sodium Chloride 0.9% 150 ml @ 0.03 UNITS/MIN 4.59 mls/hr IV .Q24H [facility] Rx#: [id number] propofoL 1,000 mg In 87.617 368.347 Empty Bag 1 bag @ 15 MCG/ KG/MIN 10.41 mls/hr IV . Q9H37M [facility] Rx#:[id number] Output: Urine 35 7 Other: Voiding Method Indwelling Catheter Indwelling Catheter ABP, PAP, CO, CI - Last Documented Arterial Blood Pressure 97/45 - Constitutional Constitutional Comment(s): patient is mechanically intubated General appearance: Present: no acute distress - EENT EENT Comment(s): Head: atraumatic, normocephalic, symmetric Eyes: anicteric sclera, pupils equal round reactive to light ENT: Nose and ears atraumatic, throat cannot be assessed - Neck Details: supple, no bruits, trachea midline, range of motion cannot be assessed Carotids: bilateral: upstroke normal, bruit absent Thyroid: bilateral: normal size, negative: nodule - Respiratory Details: patient on mechanical ventilation Respiratory: negative: wheezing, prolonged expiration, prolonged inspiration - Cardiovascular Heart rate: 115 (Afib) Rhythm: regularly irregular Heart sounds: normal: S1, S2 - Gastrointestinal General gastrointestinal: Present: normal bowel sounds, soft - Integumentary Integumentary Comment(s): bilateral feel are cold, pulses present - Musculoskeletal Musculoskeletal Comment(s): unable to assess - Labs CBC & Chem 7: 09/04/23 09:35 09/04/23 09:35 Labs: Abnormal Lab Results - Last 24 Hours (Table) 09/03/23 09/03/23 09/03/23 Range/Units 21:11 21:11 21:11 WBC 23.6 H (3.8-10.6) k/uL RBC (4.30-5.90) m/uL Hgb 11.0 L (13.0-17.5) gm/dL Hct 36.7 L (39.0-53.0) % MCV 79.6 L (80.0-100.0) fL MCH 23.7 L (25.0-35.0) pg MCHC 29.8 L (31.0-37.0) g/dL RDW 16.0 H (11.5-15.5) % Plt Count (150-450) k/uL Neutrophils # 21.3 H (1.3-7.7) k/uL Lymphocytes # 0.6 L (1.0-4.8) k/uL Monocytes # 1.2 H (0-1.0) k/uL INR 1.2 H (<1.2) APTT (22.0-30.0) sec ABG pH (7.35-7.45) ABG pCO2 (35-45) mmHg ABG pO2 (83-108) mmHg ABG HCO3 (21-25) mmol/L ABG Total CO2 (19-24) mmol/L ABG O2 Saturation (94-97) % Sodium 136 L (137-145) mmol/L Chloride 109 H (98-107) mmol/L Carbon Dioxide 12 L (22-30) mmol/L BUN 32 H (9-20) mg/dL Creatinine 3.61 H (0.66-1.25) mg/dL Glucose 140 H (74-99) mg/dL POC Glucose (mg/dL) (70-110) mg/dL Plasma Lactic Acid Bryant (0.7-2.0) mmol/L Calcium 7.5 L (8.4-10.2) mg/dL Creatine Kinase (55-170) U/L Troponin I (0.000-0.034) ng/mL Total Protein 6.2 L (6.3-8.2) g/dL Albumin 3.0 L (3.5-5.0) g/dL Urine Protein (Negative) Urine Glucose (UA) (Negative) Urine Blood (Negative) Ur Leukocyte Esterase (Negative) Urine RBC (0-5) /hpf Urine WBC (0-5) /hpf Urine WBC Clumps (None) /hpf Urine Bacteria (None) /hpf Urine Mucus (None) /hpf 09/03/23 09/03/23 09/03/23 Range/Units 21:11 21:11 21:11 WBC (3.8-10.6) k/uL RBC (4.30-5.90) m/uL Hgb (13.0-17.5) gm/dL Hct (39.0-53.0) % MCV (80.0-100.0) fL MCH (25.0-35.0) pg MCHC (31.0-37.0) g/dL RDW (11.5-15.5) % Plt Count (150-450) k/uL Neutrophils # (1.3-7.7) k/uL Lymphocytes # (1.0-4.8) k/uL Monocytes # (0-1.0) k/uL INR (<1.2) APTT (22.0-30.0) sec ABG pH (7.35-7.45) ABG pCO2 (35-45) mmHg ABG pO2 (83-108) mmHg ABG HCO3 (21-25) mmol/L ABG Total CO2 (19-24) mmol/L ABG O2 Saturation (94-97) % Sodium (137-145) mmol/L Chloride (98-107) mmol/L Carbon Dioxide (22-30) mmol/L BUN (9-20) mg/dL Creatinine (0.66-1.25) mg/dL Glucose (74-99) mg/dL POC Glucose (mg/dL) (70-110) mg/dL Plasma Lactic Acid Bryant 6.9 H* (0.7-2.0) mmol/L Calcium (8.4-10.2) mg/dL Creatine Kinase 952 H (55-170) U/L Troponin I 0.082 H* (0.000-0.034) ng/mL Total Protein (6.3-8.2) g/dL Albumin (3.5-5.0) g/dL Urine Protein (Negative) Urine Glucose (UA) (Negative) Urine Blood (Negative) Ur Leukocyte Esterase (Negative) Urine RBC (0-5) /hpf Urine WBC (0-5) /hpf Urine WBC Clumps (None) /hpf Urine Bacteria (None) /hpf Urine Mucus (None) /hpf 09/03/23 09/03/23 09/04/23 Range/Units 21:22 23:40 00:05 WBC (3.8-10.6) k/uL RBC (4.30-5.90) m/uL Hgb (13.0-17.5) gm/dL Hct (39.0-53.0) % MCV (80.0-100.0) fL MCH (25.0-35.0) pg MCHC (31.0-37.0) g/dL RDW (11.5-15.5) % Plt Count (150-450) k/uL Neutrophils # (1.3-7.7) k/uL Lymphocytes # (1.0-4.8) k/uL Monocytes # (0-1.0) k/uL INR (<1.2) APTT (22.0-30.0) sec ABG pH 7.30 L (7.35-7.45) ABG pCO2 26 L (35-45) mmHg ABG pO2 400 H (83-108) mmHg ABG HCO3 13 L (21-25) mmol/L ABG Total CO2 13 L (19-24) mmol/L ABG O2 Saturation 100.7 H (94-97) % Sodium (137-145) mmol/L Chloride (98-107) mmol/L Carbon Dioxide (22-30) mmol/L BUN (9-20) mg/dL Creatinine (0.66-1.25) mg/dL Glucose (74-99) mg/dL POC Glucose (mg/dL) (70-110) mg/dL Plasma Lactic Acid Bryant 6.4 H* (0.7-2.0) mmol/L Calcium (8.4-10.2) mg/dL Creatine Kinase (55-170) U/L Troponin I (0.000-0.034) ng/mL Total Protein (6.3-8.2) g/dL Albumin (3.5-5.0) g/dL Urine Protein 3+ H (Negative) Urine Glucose (UA) Trace H (Negative) Urine Blood Large H (Negative) Ur Leukocyte Esterase Large H (Negative) Urine RBC 65 H (0-5) /hpf Urine WBC >182 H (0-5) /hpf Urine WBC Clumps Many H (None) /hpf Urine Bacteria Few H (None) /hpf Urine Mucus Rare H (None) /hpf 09/04/23 09/04/23 09/04/23 Range/Units 00:46 02:15 02:23 WBC (3.8-10.6) k/uL RBC (4.30-5.90) m/uL Hgb (13.0-17.5) gm/dL Hct (39.0-53.0) % MCV (80.0-100.0) fL MCH (25.0-35.0) pg MCHC (31.0-37.0) g/dL RDW (11.5-15.5) % Plt Count (150-450) k/uL Neutrophils # (1.3-7.7) k/uL Lymphocytes # (1.0-4.8) k/uL Monocytes # (0-1.0) k/uL INR (<1.2) APTT (22.0-30.0) sec ABG pH 7.22 L (7.35-7.45) ABG pCO2 (35-45) mmHg ABG pO2 250 H (83-108) mmHg ABG HCO3 18 L (21-25) mmol/L ABG Total CO2 (19-24) mmol/L ABG O2 Saturation 100.0 H (94-97) % Sodium (137-145) mmol/L Chloride (98-107) mmol/L Carbon Dioxide (22-30) mmol/L BUN (9-20) mg/dL Creatinine (0.66-1.25) mg/dL Glucose (74-99) mg/dL POC Glucose (mg/dL) 217 H (70-110) mg/dL Plasma Lactic Acid Bryant (0.7-2.0) mmol/L Calcium (8.4-10.2) mg/dL Creatine Kinase (55-170) U/L Troponin I 0.132 H* (0.000-0.034) ng/mL Total Protein (6.3-8.2) g/dL Albumin (3.5-5.0) g/dL Urine Protein (Negative) Urine Glucose (UA) (Negative) Urine Blood (Negative) Ur Leukocyte Esterase (Negative) Urine RBC (0-5) /hpf Urine WBC (0-5) /hpf Urine WBC Clumps (None) /hpf Urine Bacteria (None) /hpf Urine Mucus (None) /hpf 09/04/23 09/04/23 09/04/23 Range/Units 03:32 03:32 03:32 WBC 15.0 H (3.8-10.6) k/uL RBC 4.16 L (4.30-5.90) m/uL Hgb 10.0 L (13.0-17.5) gm/dL Hct 32.9 L (39.0-53.0) % MCV 79.2 L (80.0-100.0) fL MCH 24.0 L (25.0-35.0) pg MCHC 30.4 L (31.0-37.0) g/dL RDW 16.0 H (11.5-15.5) % Plt Count (150-450) k/uL Neutrophils # 13.3 H (1.3-7.7) k/uL Lymphocytes # 0.8 L (1.0-4.8) k/uL Monocytes # (0-1.0) k/uL INR (<1.2) APTT (22.0-30.0) sec ABG pH (7.35-7.45) ABG pCO2 (35-45) mmHg ABG pO2 (83-108) mmHg ABG HCO3 (21-25) mmol/L ABG Total CO2 (19-24) mmol/L ABG O2 Saturation (94-97) % Sodium 136 L (137-145) mmol/L Chloride 108 H (98-107) mmol/L Carbon Dioxide 18 L (22-30) mmol/L BUN 36 H (9-20) mg/dL Creatinine 4.05 H (0.66-1.25) mg/dL Glucose 208 H (74-99) mg/dL POC Glucose (mg/dL) (70-110) mg/dL Plasma Lactic Acid Bryant 3.3 H* (0.7-2.0) mmol/L Calcium 7.0 L (8.4-10.2) mg/dL Creatine Kinase (55-170) U/L Troponin I (0.000-0.034) ng/mL Total Protein (6.3-8.2) g/dL Albumin (3.5-5.0) g/dL Urine Protein (Negative) Urine Glucose (UA) (Negative) Urine Blood (Negative) Ur Leukocyte Esterase (Negative) Urine RBC (0-5) /hpf Urine WBC (0-5) /hpf Urine WBC Clumps (None) /hpf Urine Bacteria (None) /hpf Urine Mucus (None) /hpf 09/04/23 09/04/23 09/04/23 Range/Units 05:53 06:05 07:07 WBC (3.8-10.6) k/uL RBC (4.30-5.90) m/uL Hgb (13.0-17.5) gm/dL Hct (39.0-53.0) % MCV (80.0-100.0) fL MCH (25.0-35.0) pg MCHC (31.0-37.0) g/dL RDW (11.5-15.5) % Plt Count (150-450) k/uL Neutrophils # (1.3-7.7) k/uL Lymphocytes # (1.0-4.8) k/uL Monocytes # (0-1.0) k/uL INR (<1.2) APTT 40.7 H (22.0-30.0) sec ABG pH 7.29 L (7.35-7.45) ABG pCO2 (35-45) mmHg ABG pO2 124 H (83-108) mmHg ABG HCO3 18 L (21-25) mmol/L ABG Total CO2 (19-24) mmol/L ABG O2 Saturation 99.0 H (94-97) % Sodium (137-145) mmol/L Chloride (98-107) mmol/L Carbon Dioxide (22-30) mmol/L BUN (9-20) mg/dL Creatinine (0.66-1.25) mg/dL Glucose (74-99) mg/dL POC Glucose (mg/dL) (70-110) mg/dL Plasma Lactic Acid Bryant 3.6 H* (0.7-2.0) mmol/L Calcium (8.4-10.2) mg/dL Creatine Kinase (55-170) U/L Troponin I (0.000-0.034) ng/mL Total Protein (6.3-8.2) g/dL Albumin (3.5-5.0) g/dL Urine Protein (Negative) Urine Glucose (UA) (Negative) Urine Blood (Negative) Ur Leukocyte Esterase (Negative) Urine RBC (0-5) /hpf Urine WBC (0-5) /hpf Urine WBC Clumps (None) /hpf Urine Bacteria (None) /hpf Urine Mucus (None) /hpf 09/04/23 09/04/23 09/04/23 Range/Units 09:35 09:35 10:20 WBC 14.0 H (3.8-10.6) k/uL RBC 3.96 L (4.30-5.90) m/uL Hgb 9.7 L (13.0-17.5) gm/dL Hct 31.0 L (39.0-53.0) % MCV 78.5 L (80.0-100.0) fL MCH 24.6 L (25.0-35.0) pg MCHC (31.0-37.0) g/dL RDW 15.8 H (11.5-15.5) % Plt Count 140 L (150-450) k/uL Neutrophils # 12.2 H (1.3-7.7) k/uL Lymphocytes # 0.8 L (1.0-4.8) k/uL Monocytes # (0-1.0) k/uL INR (<1.2) APTT (22.0-30.0) sec ABG pH (7.35-7.45) ABG pCO2 (35-45) mmHg ABG pO2 (83-108) mmHg ABG HCO3 (21-25) mmol/L ABG Total CO2 (19-24) mmol/L ABG O2 Saturation (94-97) % Sodium (137-145) mmol/L Chloride 112 H (98-107) mmol/L Carbon Dioxide 15 L (22-30) mmol/L BUN 36 H (9-20) mg/dL Creatinine 4.57 H (0.66-1.25) mg/dL Glucose 194 H (74-99) mg/dL POC Glucose (mg/dL) (70-110) mg/dL Plasma Lactic Acid Bryant 5.8 H* (0.7-2.0) mmol/L Calcium (8.4-10.2) mg/dL Creatine Kinase (55-170) U/L Troponin I (0.000-0.034) ng/mL Total Protein (6.3-8.2) g/dL Albumin (3.5-5.0) g/dL Urine Protein (Negative) Urine Glucose (UA) (Negative) Urine Blood (Negative) Ur Leukocyte Esterase (Negative) Urine RBC (0-5) /hpf Urine WBC (0-5) /hpf Urine WBC Clumps (None) /hpf Urine Bacteria (None) /hpf Urine Mucus (None) /hpf 09/04/23 09/04/23 09/04/23 Range/Units 11:34 13:45 16:10 WBC (3.8-10.6) k/uL RBC (4.30-5.90) m/uL Hgb (13.0-17.5) gm/dL Hct (39.0-53.0) % MCV (80.0-100.0) fL MCH (25.0-35.0) pg MCHC (31.0-37.0) g/dL RDW (11.5-15.5) % Plt Count (150-450) k/uL Neutrophils # (1.3-7.7) k/uL Lymphocytes # (1.0-4.8) k/uL Monocytes # (0-1.0) k/uL INR (<1.2) APTT 76.3 H (22.0-30.0) sec ABG pH (7.35-7.45) ABG pCO2 (35-45) mmHg ABG pO2 (83-108) mmHg ABG HCO3 (21-25) mmol/L ABG Total CO2 (19-24) mmol/L ABG O2 Saturation (94-97) % Sodium (137-145) mmol/L Chloride (98-107) mmol/L Carbon Dioxide (22-30) mmol/L BUN (9-20) mg/dL Creatinine (0.66-1.25) mg/dL Glucose (74-99) mg/dL POC Glucose (mg/dL) 200 H (70-110) mg/dL Plasma Lactic Acid Bryant 8.5 H* (0.7-2.0) mmol/L Calcium (8.4-10.2) mg/dL Creatine Kinase (55-170) U/L Troponin I (0.000-0.034) ng/mL Total Protein (6.3-8.2) g/dL Albumin (3.5-5.0) g/dL Urine Protein (Negative) Urine Glucose (UA) (Negative) Urine Blood (Negative) Ur Leukocyte Esterase (Negative) Urine RBC (0-5) /hpf Urine WBC (0-5) /hpf Urine WBC Clumps (None) /hpf Urine Bacteria (None) /hpf Urine Mucus (None) /hpf - Imaging and Cardiology Chest x-ray: report reviewed US - abdomen: report reviewed echo results above Assessment and Plan Assessment: Sepsis unknown origin Severe anion gap metabolic acidosis and lactic acidosis, lactic acid at 8.5 Possible urinary tract infection Acute dyspnea and impending respiratory failure, requiring intubation to the mechanical ventilator. Postintubation chest x-ray shows endotracheal tube tip in adequate position above the arnold, minimal bibasilar opacities, likely atelectasis. No obvious focal infiltrates or pneumonia. No pleural effusions or pneumothorax Acute leukocytosis, WBC downtrending Increased toponin I levels due to increased myocardial demand. Currently on heparin drip Atrial fibrillation with frequent PACs. On amiodarone IV bolus Acute kidney injury, creatinine 4.7 History of frequent urinary tract infections and chronic indwelling urinary catheter History of prostate disorder History of coronary artery disease History of hyperlipidemia History of diabetes mellitus type 2 Obesity, with a BMI of 35.6 kg/m Plan: Continue to monitor in ICU Continue DVT prophylaxis Continue Mechnical ventilation Continue norepinephrine and vasopressin for hypotension Continue empiric antibiotics Continue fluid resuscitation Continue amiodarone for arrhythmia Prognosis is guarded. Patient is full code. Time with Patient: Greater than 30
[2023-09-04] MEDS ORDERED: ADENOSINE 3 MG/ML 2 ML VIAL IVP ONE (18:57)
[2023-09-04 21:20] LABS: Anion Gap 18 mmol/L; Blood Urea Nitrogen 33 mg/dL (9-20); Carbon Dioxide 10 mmol/L (22-30); Chloride 108 mmol/L (98-107); Glucose 250 mg/dL (74-99); Non-African American GFR(CKD) 10 (>60 ml/min/1.73 sqM); Potassium 3.9 mmol/L (3.5-5.1); Sodium 136 mmol/L (137-145)
[2023-09-04 21:46] LABS: African American GFR (CKD) 12 (>60 ml/min/1.73 sqM)
--- NOTE | 2023-09-04 23:02 | P.CRDCN ---
History of Present Illness Consult date: 09/04/23 History of present illness: HISTORY OF PRESENTING ILLNESS Patient is a 73-year-old male who initially presented to [facility] because of being feeling unwell for 3 to 4 days, being very weak with reduced appetite. Lately patient has been having frequent urinary tract infection. He also has history of dyslipidemia, CAD with PCI, type 2 diabetes, COPD. In [facility] ER he was noticed to be in respiratory distress and was intubated. On admission labs showed WBC 23.6, hemoglobin 11, lactate 6.9, BUN 32, creatinine 3.6. CPK 952, troponin 0.08, 0.13 NT proBNP 13,700 ECG showed sinus tachycardia with frequent PACs. In ICU it was noted that patient was going into narrow complex supraventricular rhythm which appeared to be most likely atrial tachycardia. For this patient received 6 mg adenosine with repeat of 12 mg adenosine. It did slow down patient's heart rate but did not break the rhythm. Patient was subsequently underwent synchronized cardiov ersion because of his heart rate of 170s with hemodynamic compromise and low blood pressure. 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 He was subsequently given 150 mg of amiodarone bolus and was started on amiodarone drip along with supporting his blood pressure with norepinephrine and giving him 2000 mL fluid bolus. Echo showed EF 50 to 55% however the echo study was very limited with limited valve evaluation REVIEW OF SYSTEMS Unable to obtain as patient is intubated and sedated PHYSICAL EXAMINATION Vital signs reviewed. Head: Normocephalic. Eyes: Sclerae nonicteric. Neck: Brisk carotid upstroke, Lungs: Mild crackles audible, ET tube in place, on vent support Heart: Irregularly irregular,, S1-S2, no significant murmurs appreciated Abdomen: Soft nontender, Extremities: No edema, Neuro: Under sedation, detailed exam was not performed. ASSESSMENT Narrow complex tachycardia, likely atrial tachycardia versus A-fib Elevated troponin, likely type II NSTEMI, demand supply mismatch from septic shock, tachycardia, hypoxia Septic shock likely from UTI Ventilator dependent respiratory failure Recent frequent UTIs Prior history of CAD s/p PCI Type 2 diabetes Dyslipidemia PLAN Continue IV heparin drip Continue amiodarone drip. Transition to amiodarone 400 mg twice daily once drip finishes Consider starting low-dose metoprolol as patient is weaned down from pressors Continue pressor support, wean vasopressin before norepinephrine Start aspirin 81 mg, Lipitor 40 mg. Monitor platelets, level trending down. Monitor for signs of HIT Would recommend outpatient ischemic evaluation either invasively or non invasively with a stress test Rian Bradley MD, [facility], [facility] Thank you for allowing [facility] to participate in this patient's care. Feel free to reach out in case of any followup questions. Past Medical History Past Medical History: Coronary Artery Disease (CAD), COPD, Diabetes Mellitus, Myocardial Infarction ([place]), Prostate Disorder Last Myocardial Infarction Date:: unknown History of Any Multi-Drug Resistant Organisms: Unobtainable Past Anesthesia/Blood Transfusion Reactions: Unable to Obtain Past Psychological History: Unable to Obtain Smoking Status: Unknown if ever smoked - Past Family History Father Family Medical History: Unable to Obtain Medications and Allergies Home Medications Medication Instructions Recorded Confirmed Type Atorvastatin Calcium [Lipitor] 80 mg PO HS 09/04/23 09/04/23 History Diclofenac Sodium [Voltaren 2 gm TOPICAL QID 09/04/23 09/04/23 History Arthritis Pain 1% Gel] Empagliflozin [Jardiance] 25 mg PO DAILY 09/04/23 09/04/23 History Finasteride [Proscar] 5 mg PO DAILY 09/04/23 09/04/23 History Gabapentin [Neurontin] 400 mg PO TID 09/04/23 09/04/23 History Insulin Glargine,Hum.rec.anlog 10 units SQ HS 09/04/23 09/04/23 History [Lantus Solostar Pen] Liraglutide [Victoza 2-Crescencio] 1.8 mg SQ DAILY 09/04/23 09/04/23 History lisinopriL [Zestril] 2.5 mg PO DAILY 09/04/23 09/04/23 History polyethylene glycoL 3350 [Miralax] 17 gm PO DAILY PRN 09/04/23 09/04/23 History traMADol HCl [Ultram] 50 mg PO BID PRN 09/04/23 09/04/23 History Allergies Allergy/AdvReac Type Severity Reaction Status Date / Time No Known Allergies Allergy Verified 09/04/23 09:57 Physical Exam Vitals: Vital Signs Temp Pulse Resp BP Pulse Ox FiO2 09/04/23 22:45 115 H 32 H 101/54 96 07/24 22:30 116 H 46 H 92/60 97 07/24 22:15 115 H 31 H 97/56 97 07/0324 22:00 117 H 32 H 103/62 97 07/24 21:45 116 H 36 H 97/66 97 24 21:30 116 H 35 H 104/54 98 07//24 21:15 116 H 34 H 109/71 98 0724 21:00 116 H 36 H 104/60 98 07/24 20:45 117 H 28 H 109/49 97 07/24 20:37 116 H 0724 20:30 114 H 34 H 102/52 98 07/24 20:28 116 H 50 09/04/23 20:15 114 H 33 H 106/50 98 24 20:00 101.3 F H 115 H 37 H 106/44 98 50 24 19:45 115 H 34 H 107/60 98 24 19:30 115 H 31 H 114/58 98 070324 19:15 112 H 35 H 115/54 98 07/0324 19:00 114 H 35 H 108/55 98 07/24 18:45 115 H 34 H 109/54 98 07/24 18:30 112 H 34 H 121/49 97 //24 18:15 114 H 33 H 107/68 98 07//24 18:00 112 H 33 H 113/57 97 07//24 17:45 115 H 33 H 117/63 98 07//24 17:30 116 H 32 H 107/61 98 07/03/24 17:15 114 H 36 H 96/57 97 07/03/24 17:00 114 H 35 H 110/61 97 07/03/24 16:45 112 H 34 H 103/55 97 07/03/24 16:33 50 0724 16:30 114 H 30 H 104/54 97 07//24 16:15 113 H 34 H 98/54 98 07/03/24 16:00 99.1 F 112 H 34 H 107/58 97 50 070324 15:55 112 H 070324 15:47 113 H 07/0324 15:45 112 H 28 H 106/49 97 09/04/23 15:30 113 H 34 H 114/56 96 09/04/23 15:15 112 H 33 H 113/55 97 09/04/23 15:00 113 H 31 H 103/37 97 09/04/23 14:45 112 H 25 H 103/67 96 09/04/23 14:30 113 H 31 H 100/60 97 09/04/23 14:15 113 H 30 H 111/60 97 09/04/23 14:00 113 H 32 H 111/50 97 09/04/23 13:45 112 H 20 95/45 97 09/04/23 13:30 113 H 28 H 119/56 96 09/04/23 13:19 114 H 09/04/23 13:15 114 H 32 H 92/53 96 09/04/23 13:10 113 H 09/04/23 13:00 115 H 38 H 94/50 96 09/04/23 12:45 116 H 32 H 102/41 96 09/04/23 12:30 117 H 36 H 98/54 95 09/04/23 12:15 122 H 34 H 105/52 96 09/04/23 12:00 102.0 F H 117 H 32 H 104/54 96 50 09/04/23 11:45 112 H 36 H 103/62 95 09/04/23 11:30 114 H 36 H 121/74 94 L 09/04/23 11:20 50 09/04/23 11:15 122 H 36 H 99/56 93 L 09/04/23 11:00 130 H 36 H 78/52 94 L 09/04/23 10:45 137 H 34 H 108/56 95 09/04/23 10:30 110 H 32 H 109/48 93 L 09/04/23 10:15 118 H 36 H 41/24 93 L 09/04/23 10:00 123 H 36 H 99/56 97 09/04/23 09:45 149 H 33 H 98/45 96 09/04/23 09:30 131 H 37 H 98/45 94 L 09/04/23 09:27 124 H 09/04/23 09:17 124 H 09/04/23 09:15 122 H 38 H 79/55 96 09/04/23 09:00 129 H 34 H 95 07/03/24 08:45 120 H 27 H 114/49 95 09/04/23 08:30 120 H 35 H 94 L 09/04/23 08:15 133 H 30 H 103/61 93 L 09/04/23 08:00 101.5 F H 124 H 38 H 108/72 97 50 09/04/23 07:45 134 H 36 H 113/70 96 09/04/23 07:42 50 09/04/23 07:30 124 H 37 H 105/70 97 09/04/23 07:15 38 H 114/57 97 09/04/23 07:00 124 H 38 H 114/60 96 09/04/23 06:45 33 H 81/32 98 09/04/23 06:30 126 H 41 H 83/71 97 09/04/23 06:22 50 09/04/23 06:15 122 H 39 H 82/72 99 09/04/23 06:00 128 H 39 H 89/79 100 09/04/23 05:45 123 H 35 H 85/67 100 09/04/23 05:30 125 H 34 H 108/87 09/04/23 05:16 125 H 38 H 123/69 94 L 09/04/23 05:00 122 H 33 H 139/72 98 09/04/23 04:45 123 H 39 H 123/78 96 09/04/23 04:30 33 H 123/78 09/04/23 04:19 120 H 09/04/23 04:10 116 H 28 H 145/94 100 09/04/23 04:09 70 09/04/23 04:07 70 09/04/23 04:00 117 H 29 H 113/56 100 70 09/04/23 03:50 117 H 27 H 113/56 100 09/04/23 03:40 118 H 22 137/72 100 09/04/23 03:30 114 H 25 H 112/65 99 09/04/23 03:20 123 H 25 H 112/65 100 09/04/23 03:10 121 H 28 H 105/62 100 09/04/23 03:00 126 H 21 113/61 100 09/04/23 02:50 129 H 19 113/61 99 09/04/23 02:40 130 H 9 L 106/59 99 09/04/23 02:30 100.3 F H 126 H 24 109/85 100 80 09/04/23 01:35 137 H 20 101/52 99 09/04/23 01:11 137 H 24 99/61 100 09/04/23 01:08 80 09/04/23 01:02 70 09/03/23 23:34 100 09/03/23 23:33 133 H 18 127/74 100 Intake and Output 09/04/23 09/04/23 09/05/23 14:59 22:59 06:59 Intake Total 4422.424 2364.012 Output Total 0 54 Balance 4422.424 2310.012 Intake: IV 114 104 KVO 90 80 pressure bag 24 24 Intake, IV Titration 4308.424 2260.012 Amount Amiodarone 450 mg In 250 Dextrose 5% in Water 250 ml @ 0.5 MG/MIN 16.667 mls/hr IV .Q15H [facility] Rx#: [id number] Dextrose 5% in Water 1, 100 300 000 ml @ 100 mls/hr IV . [id number] [facility] with Sodium Bicarb (1 Meq/ml) 150 ml Rx#:[id number] Dextrose 5% in Water 100 600 110 ml @ 618 mls/hr IV .Q10M ONE with Amiodarone 150 mg Rx#:[id number] Heparin Sod,Pork in 0.45% 148.859 NaCl 25,000 unit In 0.45 % NaCl 1 250ml.bag @ 8.62 UNITS/KG/HR 9.97 mls/hr IV .Q24H [facility] Rx#: [id number] Norepinephrine 4 mg In 271.829 9858.401 Sodium Chloride 0.9% 250 ml @ 0.03 MCG/KG/MIN 13. 221 mls/hr IV .[id number] [facility] Rx#:[id number] Piperacillin-Tazobactam 3 100 300 .375 gm In Sodium Chloride 0.9% 100 ml @ 25 mls/hr IVPB Q12HR [facility] Rx #:[id number] Sodium Chloride 0.9% 1, 2000 000 ml @ 999 mls/hr IV . Q1H1M ONE Rx#:[id number] Vasopressin 60 unit In 6.401 Sodium Chloride 0.9% 150 ml @ 0.03 UNITS/MIN 4.59 mls/hr IV .Q24H [facility] Rx#: [id number] propofoL 1,000 mg In 287.380 134.752 Empty Bag 1 bag @ 15 MCG/ KG/MIN 10.41 mls/hr IV . Q9H37M [facility] Rx#:[id number] Output: Urine 0 54 Other: Voiding Method Indwelling Catheter Indwelling Catheter ABP, PAP, CO, CI - Last 8 Hours Arterial Blood Pressure 62/33 Arterial Blood Pressure 85/39 Arterial Blood Pressure 91/40 Arterial Blood Pressure 88/40 Arterial Blood Pressure 89/40 Arterial Blood Pressure 91/41 Arterial Blood Pressure 92/41 Arterial Blood Pressure 99/44 Arterial Blood Pressure 98/51 Arterial Blood Pressure 98/43 Arterial Blood Pressure 92/41 Arterial Blood Pressure 93/43 Arterial Blood Pressure 92/43 Arterial Blood Pressure 103/45 Arterial Blood Pressure 96/43 Arterial Blood Pressure 98/44 Arterial Blood Pressure 98/45 Arterial Blood Pressure 104/45 Arterial Blood Pressure 106/47 Arterial Blood Pressure 108/47 Arterial Blood Pressure 105/46 Arterial Blood Pressure 101/45 Arterial Blood Pressure 87/42 Arterial Blood Pressure 91/43 Arterial Blood Pressure 91/42 Arterial Blood Pressure 97/45 Arterial Blood Pressure 98/42 Arterial Blood Pressure 98/45 Arterial Blood Pressure 96/45 Arterial Blood Pressure 98/45 Results 09/04/23 09:35 09/04/23 18:53 Cardiac Enzymes 09/03/23 09/04/23 Range/Units 21:11 02:23 Troponin I 0.082 H* 0.132 H* (0.000-0.034) ng/mL Coagulation 09/03/23 09/04/23 09/04/23 Range/Units 21:11 06:05 13:45 PT 12.4 (10.0-12.5) sec APTT 24.9 40.7 H 76.3 H (22.0-30.0) sec CBC 09/04/23 09/04/23 Range/Units 03:32 09:35 WBC 15.0 H 14.0 H (3.8-10.6) k/uL RBC 4.16 L 3.96 L (4.30-5.90) m/uL Hgb 10.0 L 9.7 L (13.0-17.5) gm/dL Hct 32.9 L 31.0 L (39.0-53.0) % Plt Count 150 140 L (150-450) k/uL Comprehensive Metabolic Panel 09/04/23 09/04/23 09/04/23 Range/Units 03:32 09:35 18:53 Sodium 136 L 140 136 L (137-145) mmol/L Potassium 4.3 3.8 3.9 (3.5-5.1) mmol/L Chloride 108 H 112 H 108 H (98-107) mmol/L Carbon Dioxide 18 L 15 L 10 L (22-30) mmol/L BUN 36 H 36 H 33 H (9-20) mg/dL Creatinine 4.05 H 4.57 H 5.28 H (0.66-1.25) mg/dL Glucose 208 H 194 H 250 H (74-99) mg/dL Calcium 7.0 L 8.4 6.0 L* (8.4-10.2) mg/dL Current Medications Generic Name Dose Route Start Last Admin Trade Name Freq PRN Reason Stop Dose Admin Acetaminophen 1,000 mg 09/04/23 13:16 09/04/23 14:37 Acetaminophen Tab 500 Mg Tab PO 1,000 mg TID PRN Administration Fever and/ or Pain Albuterol/Ipratropium 3 ml 09/04/23 04:00 09/04/23 20:28 Ipratropium-Albuterol 3 Ml Neb INHALATION 3 ml RT-Q4H [facility] Administration Chlorhexidine Gluconate 15 ml 09/04/23 09:00 09/04/23 10:33 Chlorhexidine Gluconate 15 Ml Cup MUCOUS MEM 15 ml BID [facility] Administration Heparin Sodium (Porcine) 0 unit 09/03/23 22:38 09/04/23 07:01 Heparin Sodium 1,000 Un/Ml (10ml Vl) IV 2,825 unit PER PROTOCOL PRN Administration Low PTT Protocol Sodium Bicarbonate 150 ml/ 1,150 mls @ 100 mls/hr 09/03/23 22:30 09/04/23 11:46 Dextrose/Water IV 100 mls/hr .[id number] [facility] Administration Heparin Sodium/Sodium Chloride 250 mls @ 9.97 mls/hr 09/03/23 22:45 09/04/23 18:36 25,000 unit/ Sodium Chloride IV 11 units/kg/hr .Q24H [facility] 12.723 mls/hr Administration Protocol 8.62 UNITS/KG/HR Norepinephrine Bitartrate 4 mg 254 mls @ 13.221 mls/hr 09/04/23 06:30 09/04/23 21:47 / Sodium Chloride IV 0.5 mcg/kg/min .[id number] [facility] 220.344 mls/hr Administration Protocol 0.03 MCG/KG/MIN Piperacillin Sod/Tazobactam 100 mls @ 25 mls/hr 09/04/23 09:00 09/04/23 20:52 Sod 3.375 gm/ Sodium Chloride IVPB 25 mls/hr Q12HR [facility] Administration Protocol Vancomycin HCl 1,750 mg/ 500 mls @ 167 mls/hr 09/05/23 06:00 Sodium Chloride IVPB 09/05/23 08:59 ONCE ONE Amiodarone HCl 450 mg/ 250 mls @ 16.667 mls/hr 09/04/23 16:15 09/04/23 15:54 Dextrose/Water IV 09/05/23 10:14 0.5 mg/min .Q15H [facility] 16.667 mls/hr Administration Protocol 0.5 MG/MIN Vasopressin 60 unit/ Sodium 153 mls @ 4.59 mls/hr 09/04/23 10:15 09/04/23 12:53 Chloride IV 0.04 units/min .Q24H [facility] 6.12 mls/hr Titration Protocol 0.03 UNITS/MIN Propofol 1,000 mg/ IV Solution 100 mls @ 10.41 mls/hr 09/04/23 19:32 09/04/23 20:51 IV 15 mcg/kg/min .Q9H37M [facility] 10.41 mls/hr Administration Protocol 15 MCG/KG/MIN Miscellaneous Information 1 each 09/03/23 21:45 Vancomycin Iv Per Pharmacy 1 Each Misc MISCELLANE DIRECTED PRN Per Protocol Protocol Naloxone HCl 0.2 mg 09/03/23 23:30 Naloxone 0.4 Mg/Ml 1 Ml Vial IV Q2M PRN Opioid Reversal Pantoprazole Sodium 40 mg 09/04/23 09:00 09/04/23 10:33 Pantoprazole 40 Mg/10 Ml Vial IVP 40 mg DAILY [facility] Administration Intake and Output 09/04/23 09/04/23 09/05/23 14:59 22:59 06:59 Intake Total 4422.424 2364.012 Output Total 0 54 Balance 4422.424 2310.012 Intake: IV 114 104 KVO 90 80 pressure bag 24 24 Intake, IV Titration 4308.424 2260.012 Amount Amiodarone 450 mg In 250 Dextrose 5% in Water 250 ml @ 0.5 MG/MIN 16.667 mls/hr IV .Q15H [facility] Rx#: [id number] Dextrose 5% in Water 1, 100 300 000 ml @ 100 mls/hr IV . [id number] [facility] with Sodium Bicarb (1 Meq/ml) 150 ml Rx#:[id number] Dextrose 5% in Water 100 600 110 ml @ 618 mls/hr IV .Q10M ONE with Amiodarone 150 mg Rx#:[id number] Heparin Sod,Pork in 0.45% 148.859 NaCl 25,000 unit In 0.45 % NaCl 1 250ml.bag @ 8.62 UNITS/KG/HR 9.97 mls/hr IV .Q24H [facility] Rx#: [id number] Norepinephrine 4 mg In 722.388 9270.401 Sodium Chloride 0.9% 250 ml @ 0.03 MCG/KG/MIN 13. 221 mls/hr IV .[id number] [facility] Rx#:[id number] Piperacillin-Tazobactam 3 100 300 .375 gm In Sodium Chloride 0.9% 100 ml @ 25 mls/hr IVPB Q12HR [facility] Rx #:[id number] Sodium Chloride 0.9% 1, 2000 000 ml @ 999 mls/hr IV . Q1H1M [facility] Rx#:[id number] Vasopressin 60 unit In 6.401 Sodium Chloride 0.9% 150 ml @ 0.03 UNITS/MIN 4.59 mls/hr IV .Q24H [facility] Rx#: [id number] propofoL 1,000 mg In 287.380 134.752 Empty Bag 1 bag @ 15 MCG/ KG/MIN 10.41 mls/hr IV . Q9H37M [facility] Rx#:[id number] Output: Urine 0 54 Other: Voiding Method Indwelling Catheter Indwelling Catheter 09/04/23 09:35 09/04/23 18:53
[2023-09-04 23:47] LABS: Glucose,Whole Blood 259 mg/dL (70-110)
[2023-09-05 00:55] LABS: ABG Base Excess -14.7 mmol/L; ABG HCO3 13 mmol/L (21-25); ABG PCO2 39 mmHg (35-45); ABG PO2 96 mmHg (83-108); ABG TCO2 15 mmol/L (19-24); Allen Test Performed? Yes
[2023-09-05 00:57] LABS: ABG PH 7.14 (7.35-7.45)
[2023-09-05] MEDS: SODIUM BICARB 8.4% 50 ML SYR (1 MEQ/ML) IV STA ×2 (01:23→05:11)
[2023-09-05] MEDS: NOREPINEPHRINE 32 MG in SODIUM CHLORIDE 0.9% 218 ML IV SCH (03:00)
[2023-09-05 04:09] VITALS: TEMP 99.1
[2023-09-05 04:24] LABS: ABG Base Excess -16.6 mmol/L; ABG HCO3 12 mmol/L (21-25); ABG PCO2 41 mmHg (35-45); ABG PO2 75 mmHg (83-108); ABG TCO2 14 mmol/L (19-24); Allen Test Performed? Yes
[2023-09-05 04:25] LABS: ABG PH 7.09 (7.35-7.45)
[2023-09-05 05:40] VITALS: RESP 32
--- NOTE | 2023-09-05 06:35 | P.PN ---
Subjective Progress Note Date: 09/05/23 Principal diagnosis: Sepsis, septic shock, respiratory failure I am seeing this patient in follow-up today 09/05/2023, despite maximal supportive care, patient is continued to decompensate throughout the night. He is profoundly hypotensive, unresponsive on the mechanical ventilator, mottled appearance. He is septic with multisystem organ failure. Requiring increased titrations of his vasopressor support. Norepinephrine is now infusing at 0.5 mcg/kg/min and vasopressin is infusing at physiological dose. Despite these titrations, patient is still hypotensive. He did receive an additional 2 L normal saline bolus earlier last night. We did establish CVP, which is reading 14. He did have multiple runs of SVT/A-fib RVR earlier yesterday during the day, and was started on amiodarone infusion protocol which is currently infusing at 0.5 mg/min. Heparin is also infusing per protocol. Current heart rhythm on bedside monitor sinus tachycardia, with a rate of 140 bpm. Lactic acid is on the rise, with most recent 9.4. Blood gases are showing worse acid-base balance and profound metabolic acidosis. Most recent gas is a PaO2 of 75, pCO2 of 41, pH of 7.09. Patient has received a total of 4 A of additional sodium bicarbonate IV push as well as an increase on the patient's bicarb drip to 125 MLS per hour. Current ventilator settings have been adjusted and are assist- control, respiratory rate 32, tidal volume 450, FiO2 of 50%, and PEEP of 5. Most recent available chest x-ray continues to show mild cardiomegaly with mild interstitial prominence. Likely component of fluid overload. We are awaiting further morning labs. Has been intermittently febrile with Tmax of 102 F. Continues to be covered on broad-spectrum antibiotic coverage in the form of Zosyn and vancomycin. Patient's condition is critical, and overall prognosis is extremely poor. We have called patient's next of kin/son who is on his way into the hospital from [place]. Objective - Vital Signs Vital signs: Vital Signs Temp 99.1 F 09/05/23 04:00 Pulse 151 H 09/05/23 05:30 Resp 32 H 09/05/23 05:30 BP 122/71 09/05/23 05:15 Pulse Ox 95 09/05/23 05:30 FiO2 50 09/05/23 04:37 Intake & Output 09/04/23 09/04/23 09/05/23 06:59 18:59 06:59 Intake Total 2068.046 5826.436 2042.954 Output Total 35 18 61 Balance 2033.046 5808.436 1981.954 Weight 113.6 kg 129.4 kg Intake: IV 166 130 KVO 130 100 pressure bag 36 30 Intake, IV Titration 2068.046 5660.436 1912.954 Amount Amiodarone 450 mg In 250 228.616 Dextrose 5% in Water 250 ml @ 0.5 MG/MIN 16.667 mls/hr IV .Q15H [facility] Rx#: [id number] Dextrose 5% in Water 1, 400 300 100 000 ml @ 125 mls/hr IV . Q9H12M [facility] with Sodium Bicarb (1 Meq/ml) 150 ml Rx#:[id number] Dextrose 5% in Water 100 710 ml @ 618 mls/hr IV .Q10M [facility] with Amiodarone 150 mg Rx#:[id number] Heparin Sod,Pork in 0.45% 77.932 148.859 NaCl 25,000 unit In 0.45 % NaCl 1 250ml.bag @ 8.62 UNITS/KG/HR 9.97 mls/hr IV .Q24H [facility] Rx#: [id number] Norepinephrine 32 mg In 68.338 Sodium Chloride 0.9% 218 ml @ 0.03 MCG/KG/MIN 1. 598 mls/hr IV .Q24H [facility] Rx#:[id number] Norepinephrine 4 mg In 2.497 9753.125 2524 Sodium Chloride 0.9% 250 ml @ 0.03 MCG/KG/MIN 13. 221 mls/hr IV .[id number] [facility] Rx#:[id number] Piperacillin-Tazobactam 3 100 500 .375 gm In Sodium Chloride 0.9% 100 ml @ 25 mls/hr IVPB Q12HR [facility] Rx #:[id number] Sodium Chloride 0.9% 1, 1000 000 ml @ 999 mls/hr IV . Q1H1M [facility] Rx#:[id number] Sodium Chloride 0.9% 1, 2000 000 ml @ 999 mls/hr IV . Q1H1M [facility] Rx#:[id number] Vancomycin 2,000 mg In 500 Sodium Chloride 0.9% 500 ml 500 ml @ 167 mls/hr IVPB ONCE [facility] Rx#: [id number] Vasopressin 60 unit In 6.401 Sodium Chloride 0.9% 150 ml @ 0.03 UNITS/MIN 4.59 mls/hr IV .Q24H [facility] Rx#: [id number] propofoL 1,000 mg In 87.617 422.132 Empty Bag 1 bag @ 15 MCG/ KG/MIN 10.41 mls/hr IV . Q9H37M [facility] Rx#:[id number] Output: Urine 35 18 61 Other: Voiding Method Indwelling Catheter Indwelling Catheter Indwelling Catheter ABP, PAP, CO, CI - Last Documented Arterial Blood Pressure 98/54 - Exam GENERAL EXAM: Unresponsive, sedated, intubated mechanical ventilator, mottled appearance. Profound hypotension despite high-dose vasopressors. HEAD: Normocephalic and atraumatic EYES: Sluggish reaction of pupils, equal size. NOSE: Clear with pink turbinates. THROAT: No erythema or exudates. NECK: No masses, no JVD. CHEST: No chest wall deformity. LUNGS: Equal air entry with no crackles, wheeze, rhonchi or dullness. Intubated to mechanical ventilator, breathing slightly above set rate, peak pressures 26, no significant endotracheal secretions. CVS: S1 and S2 normal with no audible murmur, regular rhythm. No extra heart sounds. Tachycardic with a heart rate of 140 bpm. ABDOMEN: No hepatosplenomegaly, hypoactive bowel sounds, no guarding or rigidity. SPINE: No scoliosis or deformity SKIN: Mottled upper and lower extremities, extremities are cold and clammy CENTRAL NERVOUS SYSTEM: Sedated on propofol, no focal deficits, tone is flaccid in all 4 extremities. EXTREMITIES: There is no peripheral edema, clubbing, or cyanosis. Found with Doppler in all 4 extremities - Labs CBC & Chem 7: 09/05/23 04:45 09/05/23 04:45 Labs: Abnormal Lab Results - Last 24 Hours (Table) 09/04/23 09/04/23 09/04/23 Range/Units 00:46 05:53 06:05 WBC (3.8-10.6) k/uL RBC (4.30-5.90) m/uL Hgb (13.0-17.5) gm/dL Hct (39.0-53.0) % MCV (80.0-100.0) fL MCH (25.0-35.0) pg RDW (11.5-15.5) % Plt Count (150-450) k/uL Neutrophils # (1.3-7.7) k/uL Lymphocytes # (1.0-4.8) k/uL APTT 40.7 H (22.0-30.0) sec ABG pH 7.22 L 7.29 L (7.35-7.45) ABG pO2 250 H 124 H (83-108) mmHg ABG HCO3 18 L 18 L (21-25) mmol/L ABG Total CO2 (19-24) mmol/L ABG O2 Saturation 100.0 H 99.0 H (94-97) % Sodium (137-145) mmol/L Chloride (98-107) mmol/L Carbon Dioxide (22-30) mmol/L BUN (9-20) mg/dL Creatinine (0.66-1.25) mg/dL Glucose (74-99) mg/dL POC Glucose (mg/dL) (70-110) mg/dL Plasma Lactic Acid Bryant (0.7-2.0) mmol/L Calcium (8.4-10.2) mg/dL 09/04/23 09/04/23 09/04/23 Range/Units 07:07 09:35 09:35 WBC 14.0 H (3.8-10.6) k/uL RBC 3.96 L (4.30-5.90) m/uL Hgb 9.7 L (13.0-17.5) gm/dL Hct 31.0 L (39.0-53.0) % MCV 78.5 L (80.0-100.0) fL MCH 24.6 L (25.0-35.0) pg RDW 15.8 H (11.5-15.5) % Plt Count 140 L (150-450) k/uL Neutrophils # 12.2 H (1.3-7.7) k/uL Lymphocytes # 0.8 L (1.0-4.8) k/uL APTT (22.0-30.0) sec ABG pH (7.35-7.45) ABG pO2 (83-108) mmHg ABG HCO3 (21-25) mmol/L ABG Total CO2 (19-24) mmol/L ABG O2 Saturation (94-97) % Sodium (137-145) mmol/L Chloride 112 H (98-107) mmol/L Carbon Dioxide 15 L (22-30) mmol/L BUN 36 H (9-20) mg/dL Creatinine 4.57 H (0.66-1.25) mg/dL Glucose 194 H (74-99) mg/dL POC Glucose (mg/dL) (70-110) mg/dL Plasma Lactic Acid Bryant 3.6 H* (0.7-2.0) mmol/L Calcium (8.4-10.2) mg/dL 09/04/23 09/04/23 09/04/23 Range/Units 10:20 11:34 13:45 WBC (3.8-10.6) k/uL RBC (4.30-5.90) m/uL Hgb (13.0-17.5) gm/dL Hct (39.0-53.0) % MCV (80.0-100.0) fL MCH (25.0-35.0) pg RDW (11.5-15.5) % Plt Count (150-450) k/uL Neutrophils # (1.3-7.7) k/uL Lymphocytes # (1.0-4.8) k/uL APTT 76.3 H (22.0-30.0) sec ABG pH (7.35-7.45) ABG pO2 (83-108) mmHg ABG HCO3 (21-25) mmol/L ABG Total CO2 (19-24) mmol/L ABG O2 Saturation (94-97) % Sodium (137-145) mmol/L Chloride (98-107) mmol/L Carbon Dioxide (22-30) mmol/L BUN (9-20) mg/dL Creatinine (0.66-1.25) mg/dL Glucose (74-99) mg/dL POC Glucose (mg/dL) 200 H (70-110) mg/dL Plasma Lactic Acid Bryant 5.8 H* (0.7-2.0) mmol/L Calcium (8.4-10.2) mg/dL 09/04/23 09/04/23 09/04/23 Range/Units 16:10 18:53 19:02 WBC (3.8-10.6) k/uL RBC (4.30-5.90) m/uL Hgb (13.0-17.5) gm/dL Hct (39.0-53.0) % MCV (80.0-100.0) fL MCH (25.0-35.0) pg RDW (11.5-15.5) % Plt Count (150-450) k/uL Neutrophils # (1.3-7.7) k/uL Lymphocytes # (1.0-4.8) k/uL APTT (22.0-30.0) sec ABG pH (7.35-7.45) ABG pO2 (83-108) mmHg ABG HCO3 (21-25) mmol/L ABG Total CO2 (19-24) mmol/L ABG O2 Saturation (94-97) % Sodium 136 L (137-145) mmol/L Chloride 108 H (98-107) mmol/L Carbon Dioxide 10 L (22-30) mmol/L BUN 33 H (9-20) mg/dL Creatinine 5.28 H (0.66-1.25) mg/dL Glucose 250 H (74-99) mg/dL POC Glucose (mg/dL) (70-110) mg/dL Plasma Lactic Acid Bryant 8.5 H* 8.6 H* (0.7-2.0) mmol/L Calcium 6.0 L* (8.4-10.2) mg/dL 09/04/23 09/04/23 09/05/23 Range/Units 22:50 23:44 00:50 WBC (3.8-10.6) k/uL RBC (4.30-5.90) m/uL Hgb (13.0-17.5) gm/dL Hct (39.0-53.0) % MCV (80.0-100.0) fL MCH (25.0-35.0) pg RDW (11.5-15.5) % Plt Count (150-450) k/uL Neutrophils # (1.3-7.7) k/uL Lymphocytes # (1.0-4.8) k/uL APTT (22.0-30.0) sec ABG pH 7.14 L* (7.35-7.45) ABG pO2 (83-108) mmHg ABG HCO3 13 L (21-25) mmol/L ABG Total CO2 15 L (19-24) mmol/L ABG O2 Saturation (94-97) % Sodium (137-145) mmol/L Chloride (98-107) mmol/L Carbon Dioxide (22-30) mmol/L BUN (9-20) mg/dL Creatinine (0.66-1.25) mg/dL Glucose (74-99) mg/dL POC Glucose (mg/dL) 259 H (70-110) mg/dL Plasma Lactic Acid Bryant 8.2 H* (0.7-2.0) mmol/L Calcium (8.4-10.2) mg/dL 09/05/23 09/05/23 Range/Units 01:30 04:19 WBC (3.8-10.6) k/uL RBC (4.30-5.90) m/uL Hgb (13.0-17.5) gm/dL Hct (39.0-53.0) % MCV (80.0-100.0) fL MCH (25.0-35.0) pg RDW (11.5-15.5) % Plt Count (150-450) k/uL Neutrophils # (1.3-7.7) k/uL Lymphocytes # (1.0-4.8) k/uL APTT (22.0-30.0) sec ABG pH 7.09 L* (7.35-7.45) ABG pO2 75 L (83-108) mmHg ABG HCO3 12 L (21-25) mmol/L ABG Total CO2 14 L (19-24) mmol/L ABG O2 Saturation 92.0 L (94-97) % Sodium (137-145) mmol/L Chloride (98-107) mmol/L Carbon Dioxide (22-30) mmol/L BUN (9-20) mg/dL Creatinine (0.66-1.25) mg/dL Glucose (74-99) mg/dL POC Glucose (mg/dL) (70-110) mg/dL Plasma Lactic Acid Bryant 9.4 H* (0.7-2.0) mmol/L Calcium (8.4-10.2) mg/dL Microbiology - Last 24 Hours (Table) 09/03/23 21:20 Blood Culture - Preliminary Blood Assessment and Plan Assessment: Severe sepsis, septic shock, with multiorgan dysfunction syndrome, source is still under investigation Severe anion gap metabolic acidosis and lactic acidosis, worsening, and lactic acid levels on the rise Possible urinary tract infection Acute hypoxemic respiratory failure, requiring intubation to the mechanical ventilator, secondary to severe sepsis and above Acute leukocytosis Possible UTI 2.1 cm shadowing focus at the upper pole of the right kidney suggesting large renal stone, no hydronephrosis Elevated troponins, likely due to supply/demand mismatch, heparinized per protocol Atrial fibrillation with rapid ventricular rate, currently in sinus tachycardia, continues on amiodarone infusion at 0.5 mg/min Ejection fraction preserved, estimated at 55 to 60% no obvious regional wall motion abnormalities. Valves not adequately visualized. Acute kidney injury, secondary to hypotension and acute tubular necrosis History of frequent urinary tract infections and chronic indwelling urinary catheter History of prostate disorder History of coronary artery disease History of hyperlipidemia History of diabetes mellitus type 2 Obesity, with a BMI of 35.6 kg/m Plan: Despite maximum supportive care, patient's condition continues to decompensate. He is currently in a state of severe septic shock and has evidence of multisystem organ failure. I am concerned that the patient may despite his maximal supportive care. We have contacted patient's son and next of kin, who is on his way into the hospital from [place]. Continue on mechanical ventilator with current ventilator settings Continue maximal vasopressor support in the form of norepinephrine and vasopressin Continue sodium bicarbonate infusion, although it is failed to correct patient's acid-base balance thus far Patient has been given additional 2 L normal saline bolus, current CVP is 14 Continue amiodarone infusion per protocol for arrhythmias Continue broad-spectrum antibiotic coverage. As stated above, patient's overall prognosis is extremely poor. I have discussed the case with my supervising physician Dr. Godoy, and we have no further recommendations at this time. Patient's son is on his way into the hospital. I have personally seen and examined the patient, performed the documentation and the assessment and plan as written. Number of minutes spent on the visit:20 Joint evaluation done on this patient on 09/05/2023 along with the nurse practitioner and the medical residents. In summary, the patient remains in septic shock. The patient received aggressive fluid resuscitation, antibiotics and pressors and unfortunately his condition decompensated. He has signs of multisystem organ failure. He remains profoundly acidotic. The most recent lactic acid level on him is at 12.6. The patient is on high-dose pressors and he is on a combination of high-dose norepinephrine and vasopressin physiologic dose. He remains on Zosyn and vancomycin. He remains acidotic. He remains in renal failure. He remains an uric. The white cell count from today 30.4 with. He remains intubated on mechanical ventilator. Echocardiogram showed a preserved LV function. No significant valvular abnormalities. Chest x-ray today was also reviewed. Had a lengthy discussion with the family including 2 of the children at the bedside. They do understand the situation. This is a very poor outcome situation as the patient is becoming progressively more hypotensive and the most recent blood pressure in the mid 60s. The family opted end-of-life care. Based on that, the patient will be extubated and will institute end-of-life care and comfort care measures on this patient. Is upon family wishes. Will continue to follow during the ICU stay. I think this evaluation was done more than 30 minutes. Time with Patient: Greater than 30
[2023-09-05] MEDS: HYDROCORTISONE SUCCINATE 100 MG/2 ML VIAL IV STA (06:47)
[2023-09-05] MEDS: CALCIUM GLUCONATE IN NACL 2 GM in SALINE 1 100ML.BAG IVPB ONE (06:47)
[2023-09-05] MEDS: VANCOMYCIN 1,750 MG in SODIUM CHLORIDE 0.9% 500 ML 500 ML IVPB ONE (06:47)
[2023-09-05 07:09] LABS: ALT 91 U/L (4-49); AST 215 U/L (17-59); African American GFR (CKD) 11 (>60 ml/min/1.73 sqM); Albumin 2.2 g/dL (3.5-5.0); Alkaline Phosphatase 198 U/L (38-126); Anion Gap 21 mmol/L; Blood Urea Nitrogen 33 mg/dL (9-20); Chloride 107 mmol/L (98-107); Glucose 200 mg/dL (74-99); Non-African American GFR(CKD) 9 (>60 ml/min/1.73 sqM); Sodium 137 mmol/L (137-145); Total Bilirubin 1.6 mg/dL (0.2-1.3); Total Protein 4.7 g/dL (6.3-8.2)
[2023-09-05 07:15] VITALS: BP 97/70; PULSE 114
[2023-09-05 07:18] LABS: Anisocytosis Slight; HCT 32.7 % (39.0-53.0); HGB 9.7 gm/dL (13.0-17.5); Hypochromasia Marked; MCH 25.3 pg (25.0-35.0); MCHC 29.8 g/dL (31.0-37.0); Mean Platelet Volume 10.2; Platelet Count 176 k/uL (150-450); RBC 3.85 m/uL (4.30-5.90); RDW 16.5 % (11.5-15.5)
[2023-09-05 07:20] LABS: Carbon Dioxide 9 mmol/L (22-30)
[2023-09-05 07:21] LABS: Calcium 5.8 mg/dL (8.4-10.2)
--- NOTE | 2023-09-05 07:45 | XR ---
EXAMINATION TYPE: XR chest 1V portable DATE OF EXAM: 09/05/2023 5:21 AM CLINICAL INDICATION:Male, 73 years old with history of Tube placement; [facility] COMPARISON: 09/04/2023 TECHNIQUE: XR chest 1V portable Frontal view of the chest. FINDINGS: Lungs/Pleura: Increased haziness the left lung base. Low lung volumes are present. There is no eviden ce of pleural effusion, focal consolidation, or pneumothorax. Pulmonary vascularity: Unremarkable. Heart/mediastinum: Cardiomediastinal silhouette is unremarkable. Musculoskeletal: No acute osseous pathology. Other findings: None Lines/Tubes: Endotracheal tube with distal tip 4.1 cm above the arnold. Nasogastric tube with its distal tip and side-port projecting under the diaphragm. Left internal jugular central venous catheter with distal tip at the cavoatrial junction. IMPRESSION: 1. Support tubes in appropriate position. 2. Haziness the left lung base possibly due to low lung volumes.
[2023-09-05] MEDS ORDERED: LORazepam 2 MG/ML INJ IV PRN (08:00)
[2023-09-05 08:02] LABS: MCV 84.8 fL (80.0-100.0)
[2023-09-05 08:22] LABS: Band Neutrophils % 27 %; Large Platelets Present; Lymphocytes # (M) 1.82 k/uL (1.0-4.8); Metamyelocytes % 1 %; Neutrophils % (M) 66 %; Nucleated Red Blood Cells 1 /100 WBC (0-0); Total Cells Counted 200; Toxic Vacuolation Present; WBC 30.4 k/uL (3.8-10.6)
[2023-09-05 08:23] LABS: Polychromasia Present
[2023-09-05] MEDS: MORPHINE SULFATE 4 MG/ML SYRINGE IV PRN (08:58)
--- NOTE | 2023-09-05 13:18 | P.DS ---
Providers Date of admission: 09/03/23 23:32 Expected date of discharge: 09/05/23 Attending physician: Tatiana Brothers MD Consults: 09/03/23 22:33 Consult Physician Routine Consulting Provider: Francois Segundo Consult Reason/Comments: sherron Do you want consulting provider notified?: Yes 09/03/23 22:35 Consult Physician Routine Consulting Provider: Rian Bradley Consult Reason/Comments: elevated trop, elevated bnp Do you want consulting provider notified?: Yes 09/03/23 23:30 Consult Physician Stat Consulting Provider: Edi Godoy Consult Reason/Comments: icu patient, discussed with job Do you want consulting provider notified?: Already Contacted Primary care physician: Physician Nonstaff Hospital Course: Discharge Diagnosis: Septic shock Acute hypoxic respiratory failure Multifocal pneumonia Possible urinary tract infection, history of chronic indwelling Garrison catheter Severe lactic acidosis High anion gap metabolic acidosis Type II NSTEMI Acute kidney injury on chronic kidney disease Atrial fibrillation with RVR History of CAD Hospital Course: Patient is a 73-year-old male with a PMH of COPD, type II DM, CAD, BPH with chronic indwelling Garrison, hypertension, hyperlipidemia, who was transferred from [facility] for shortness of breath and sepsis. The history was obtained from the chart and from the ED provider as the patient was intubated at the time of interview and attempts to reach the family via phone were unsuccessful. The patient had reportedly been not feeling well for the past 2 to 3 days and had decreased oral intake and gradually worsening shortness of breath. The son who reportedly came home to find the patient in some respiratory distress at which point EMS was activated and the patient was taken to [facility]. The patient was noted to have severe acidosis with concerns for sepsis and impending respiratory failure and subsequently transferred to [facility]. Upon arrival the patient was in severe respiratory distress and hypoxic respiratory failure. He was subsequently intubated and placed on mechanical ventilation. Chest x-ray in the emergency room revealed no acute abnormalities aside from cardiomegaly. EKG revealed sinus tachycardia with APCs at 124 bpm with T wave flattening in the inferior leads III and aVF as reviewed by me. Laboratory evaluation was remarkable for WBC count 23.6, hemoglobin 11.0, platelet count 164, sodium 136, chloride 109, CO2 12, BUN 32, creatinine 3.61, lactic acid 6.9, anion gap 15, creatinine kinase 952, troponin 0.082, proBNP 13,700, with UA consistent with UTI. Patient was evaluated by pulmonology, cardiology, nephrology. Was started on amiodarone drip as well for atrial fibrillation with RVR. Heparin drip was later discontinued. Was maintained on sodium bicarb drip. Remains on broad- spectrum antibiotics, IV steroids also utilized. Pressor requirements continue to go up despite appropriate therapy. Due to poor prognosis, family decided to pursue comfort care measures. Patient was terminally weaned, at 0905 at 09/05/2023. Plan - Discharge Summary New Discharge Prescriptions: No Action Insulin Glargine,Hum.rec.anlog [Lantus Solostar Pen] 10 units SQ HS Gabapentin [Neurontin] 400 mg PO TID Finasteride [Proscar] 5 mg PO DAILY Empagliflozin [Jardiance] 25 mg PO DAILY Atorvastatin Calcium [Lipitor] 80 mg PO HS Liraglutide [Victoza 2-Crescencio] 1.8 mg SQ DAILY traMADol HCl [Ultram] 50 mg PO BID PRN PRN Reason: Pain polyethylene glycoL 3350 [Miralax] 17 gm PO DAILY PRN PRN Reason: Constipation lisinopriL [Zestril] 2.5 mg PO DAILY Diclofenac Sodium [Voltaren Arthritis Pain 1% Gel] 2 gm TOPICAL QID Discharge Medication List Atorvastatin Calcium [Lipitor] 80 mg PO HS 09/04/23 [History] Diclofenac Sodium [Voltaren Arthritis Pain 1% Gel] 2 gm TOPICAL QID 09/04/23 [History] Empagliflozin [Jardiance] 25 mg PO DAILY 09/04/23 [History] Finasteride [Proscar] 5 mg PO DAILY 09/04/23 [History] Gabapentin [Neurontin] 400 mg PO TID 09/04/23 [History] Insulin Glargine,Hum.rec.anlog [Lantus Solostar Pen] 10 units SQ HS 09/04/23 [History] Liraglutide [Victoza 2-Crescencio] 1.8 mg SQ DAILY 09/04/23 [History] lisinopriL [Zestril] 2.5 mg PO DAILY 09/04/23 [History] polyethylene glycoL 3350 [Miralax] 17 gm PO DAILY PRN 09/04/23 [History] traMADol HCl [Ultram] 50 mg PO BID PRN 09/04/23 [History] Follow up Appointment(s)/Referral(s): Nonstaff,Physician [Primary Care Provider] - 1-2 days Discharge Disposition: - Preliminary Cause of Preliminary Cause of : sepsis
--- NOTE | 2023-09-07 10:07 | CDI ---
Documentation Clarification Form Date: 09/07/2023 09:54:38 AM From: Kim Stewart Phone: Admit Date: 09/03/2023 11:32:00 PM Patient Name: Ismael Barahona Visit Number: [id number] Discharge Date: 09/05/2023 12:41:00 PM ATTENTION: The Clinical Documentation Specialists (CDI) and [facility] Coding Staff appreciate your assistance in clarifying documentation. Please respond to the clarification below the line at the bottom and electronically sign. The CDI & [facility] Coding staff will review the response and follow-up if needed. Please note: Queries are made part of the Legal Health Record. If you have any questions, please contact the author of this message via ITS. Dr. Tatiana Brothers UTI is documented per ED Note and throughout the Progress Notes and patient has Garrison catheter. Additional clarification regarding the etiology of the UTI is requested. History/Risk Factors: 73yo M, AHRF, sepsis w shock, UTI, NSTEMI II, MYRIAM on CKD, HTN, cardiomegaly, IDDMII, A Fib, HLD, obesity, PAC, SVT Clinical Indicators: Urinalysis: leukocytes and few bacteria Urine culture: no growth Lab results: WBC 23.6, hemoglobin 11, lactate 6.9, BUN 32, creatinine 3.6, CPK 952, troponin 0.08, 0.13, NT proBNP 13,700 Treatment: monitor in ICU; DVTprophylaxis; Mechanical ventilation; norepinephrineandvasopressinforhypotension; empiric antibiotics; fluidresuscitation amiodarone forarrhythmia. Due to poor prognosis, family decided to pursuecomfort caremeasures. Please clarify the etiology of the UTI, if known: [ ] Garrison catheter [ ] UTI not related to catheter/urostomy [ ] Other condition, please specify [ ] Unable to determine (Template Last Revised: May 2020) MTDD
--- NOTE | 2023-09-07 10:23 | CDI ---
Documentation Clarification Form Date: 09/07/2023 10:08:13 AM From: Kim Stewart Phone: Admit Date: 09/03/2023 11:32:00 PM Patient Name: Ismael Barahona Visit Number: [id number] Discharge Date: 09/05/2023 12:41:00 PM ATTENTION: The Clinical Documentation Specialists (CDI) and [facility] Coding Staff appreciate your assistance in clarifying documentation. Please respond to the clarification below the line at the bottom and electronically sign. The CDI & [facility] Coding staff will review the response and follow-up if needed. Please note: Queries are made part of the Legal Health Record. If you have any questions, please contact the author of this message via ITS. Dr. Tatiana Brothers Unspecified CKD is documented per DC Summary which may lack sufficient clinical evidence/support in the medical record. Additional clarification is requested. History/Risk Factors: 73yo M, AHRF, sepsis w shock, UTI, NSTEMI II, MYRIAM on CKD, HTN, cardiomegaly, IDDMII, A Fib, HLD, obesity, PAC, SVT, indwelling lopez, BPH Unknown baseline renal function Clinical Indicators: BUN 32 Creatinine 3.5- 5.28 AfAm 18 NonAf 16 Treatment: Maintain bicarb drip. Increase rate to 100 cc an hour. Wean FiO2 and vasopressors. Follow-uprenal ultrasound. Follow-upcultures. Continue to assess daily for need forrenal replacement therapy. Nourgencyat this time. Nephrology Consult: Maintain bicarb drip. Increase rate to 100 cc an hour. Wean FiO2 and vasopressors. Follow-uprenal ultrasound. Follow-upcultures. Continue to assess daily for need forrenal replacement therapy. Nourgencyat this time. Patient currently hemodynamically unstable. Preserved ejection fraction noted onechocardiogram. Please clarify the related diagnosis: [ ] ATN only [ ] CKD Stage 4 (GFR 15-29) [ ] Other, please specify [ ] Unable to determine - baseline kidney function data not available to gauge the stages of CKD Reference: [employer] Stage 1 eGFR = 90 and kidney damage for =3 months Stage 2 eGFR 60-89 and kidney damage for =3 months Stage 3a eGFR 45-59 and kidney damage for =3 months Stage 3b eGFR 30-44 and kidney damage for =3 months Stage 4 eGFR 15-29 r and kidney damage for =3 months Stage 5 eGFR <15 and kidney damage for =3 months (Template last revised: March 2023) MTDD
--- NOTE | 2023-09-07 10:36 | CDI ---
Documentation Clarification Form Date: 09/07/2023 10:08:13 AM From: Kim Stewart Phone: Admit Date: 09/03/2023 11:32:00 PM Patient Name: Ismael Barahona Visit Number: [id number] Discharge Date: 09/05/2023 12:41:00 PM ATTENTION: The Clinical Documentation Specialists (CDI) and [facility] Coding Staff appreciate your assistance in clarifying documentation. Please respond to the clarification below the line at the bottom and electronically sign. The CDI & [facility] Coding staff will review the response and follow-up if needed. Please note: Queries are made part of the Legal Health Record. If you have any questions, please contact the author of this message via ITS. Dr. Tatiana Brothers Your patient has diagnostic/radiology results: EF preserved, estimated at 55 to 60%. Please clarify if there is an additional diagnosis and/or clinical significance related to this result. History/Risk Factors: 73yo M, AHRF, sepsis w shock, UTI w [place], BPH, NSTEMI II, MYRIAM on CKD, HTN, cardiomegaly, IDDMII, A Fib, HLD, obesity, PAC, SVT Clinical indicators: VS/Pulse OX: 09/02 91 7 96-100 (intubated) BNP: 07341 Chest x-ray:mildcardiomegalywith mild interstitial prominence. Likely component of fluid overload. Echo: Technically difficultstudy. Definity ECHO contrast used for improved visualization of the endocardial borders (inadequatevisualization of two or more contiguous segments). Normal left ventricle size and systolic function. Very limitedDopplerstudy. Moderate aorticdilatationat the level of the sinuses of Valsalva 44 mm. Moderate aorticdilatationat the level of the sinuses of Valsalva 44 mm. LV EF is estimated at 55-60 %. LV cavitysize normal. Mildly increased LV wall thickness. No obviousregional wall motionabnormalities. Treatment: GaveLasix 80mg IV one dose. Due to poor prognosis, family decided to pursuecomfort caremeasures. Patient was terminally weaned Is there an additional diagnosis and/or clinical significance related to the above diagnostic/radiology result? [ ] Cardiomegaly with fluid overload [ ] Acute Diastolic Heart Failure (preserved EF) [ ] Result is not clinically significant (no additional diagnosis) [ ] Other, please specify [ ] Unable to determine (Template Last Reviewed: April 2020) MTDD
--- NOTE | 2023-09-07 10:45 | CDI ---
Documentation Clarification Form Date: 09/07/2023 10:37:35 AM From: Kim Stewart Phone: Admit Date: 09/03/2023 11:32:00 PM Patient Name: Ismael Barahona Visit Number: [id number] Discharge Date: 09/05/2023 12:41:00 PM ATTENTION: The Clinical Documentation Specialists (CDI) and [facility] Coding Staff appreciate your assistance in clarifying documentation. Please respond to the clarification below the line at the bottom and electronically sign. The CDI & [facility] Coding staff will review the response and follow-up if needed. Please note: Queries are made part of the Legal Health Record. If you have any questions, please contact the author of this message via ITS. Dr. Tatiana Brothers Your patient has an abnormal lab value: POC Glucose 250. Please clarify if there is an additional diagnosis and/or clinical significance related to this value. History/Risk Factors: 73yo M, AHRF, sepsis w shock, UTI w [place], BPH, NSTEMI II, MYRIAM on CKD, HTN, cardiomegaly, IDDMII, A Fib, HLD, obesity, PAC, SVT Clinical indicators: Glucose: 09/02 140 7/3 140-250 7/ 194-259 Treatment: Patient made DNR and comfort [facility]FP DM Meds: Insulin Glargine, Hum.rec.anlog 10u SQ HS; [Lantus Solostar Pen]; Liraglutide[Victoza 2-Crescencio] 1.8 mg SQ DAILY; Empagliflozin [Jardiance] 25 mg PO DAILY Is there an additional diagnosis and/or clinical significance related to the above lab result/information? [ ] Diabetes Mellitus with Hyperglycemia [ ] No additional diagnosis/Not clinically significant [ ] Other, please specify [ ] Unable to determine (Template Last Revised: April 2020) MTDD
== END 2023-09-05 12:41 | disposition expired | DRG 698 ==
LOC: EC 20:57 → 2SICU 23:32
PROVIDERS: ADMIT Internal Medicine; ATTEND Internal Medicine
PROC: 0BH18EZ Insertion of Endotracheal Airway into Trachea, Via Natural or Artificial Opening Endoscopic (ICD-10-PCS; principal; 2023-09-03)
PROC: 5A1945Z Respiratory Ventilation, 24-96 Consecutive Hours (ICD-10-PCS; 2023-09-03)
PROC: 3E043XZ Introduction of Vasopressor into Central Vein, Percutaneous Approach (ICD-10-PCS; 2023-09-03)
PROC: 5A09357 Assistance with Respiratory Ventilation, Less than 24 Consecutive Hours, Continuous Positive Airway Pressure (ICD-10-PCS; 2023-09-03)
PROC: 03HY32Z Insertion of Monitoring Device into Upper Artery, Percutaneous Approach (ICD-10-PCS; 2023-09-04)
PROC: 4A133B1 Monitoring of Arterial Pressure, Peripheral, Percutaneous Approach (ICD-10-PCS; 2023-09-04)
PROC: 4A133J1 Monitoring of Arterial Pulse, Peripheral, Percutaneous Approach (ICD-10-PCS; 2023-09-04)
PROC: 02HV33Z Insertion of Infusion Device into Superior Vena Cava, Percutaneous Approach (ICD-10-PCS; 2023-09-04)
PROC: 3E033RZ Introduction of Antiarrhythmic into Peripheral Vein, Percutaneous Approach (ICD-10-PCS; 2023-09-04)
DX: T83.511A Infection and inflammatory reaction due to indwelling urethral catheter, initial encounter (principal); A41.9 Sepsis, unspecified organism; I21.A1 Myocardial infarction type 2; J96.01 Acute respiratory failure with hypoxia; R65.21 Severe sepsis with septic shock; N17.0 Acute kidney failure with tubular necrosis; E87.21 Acute metabolic acidosis; I47.19 Other supraventricular tachycardia; N39.0 Urinary tract infection, site not specified; J44.9 Chronic obstructive pulmonary disease, unspecified; Z79.4 Long term (current) use of insulin; I48.91 Unspecified atrial fibrillation; E11.65 Type 2 diabetes mellitus with hyperglycemia; Z66 Do not resuscitate; Z51.5 Encounter for palliative care; I13.10 Hypertensive heart and chronic kidney disease without heart failure, with stage 1 through stage 4 chronic kidney disease, or unspecified chronic kidney disease; Z68.35 Body mass index [BMI] 35.0-35.9, adult; N18.9 Chronic kidney disease, unspecified; E66.9 Obesity, unspecified; I25.10 Atherosclerotic heart disease of native coronary artery without angina pectoris; N20.0 Calculus of kidney; I49.1 Atrial premature depolarization; N40.1 Benign prostatic hyperplasia with lower urinary tract symptoms; E87.70 Fluid overload, unspecified; Y73.1 Therapeutic (nonsurgical) and rehabilitative gastroenterology and urology devices associated with adverse incidents; E78.5 Hyperlipidemia, unspecified; Z79.84 Long term (current) use of oral hypoglycemic drugs; Z79.891 Long term (current) use of opiate analgesic; Z79.85 Long-term (current) use of injectable non-insulin antidiabetic drugs; Z87.440 Personal history of urinary (tract) infections; Z95.5 Presence of coronary angioplasty implant and graft; I25.2 Old myocardial infarction; Z79.899 Other long term (current) drug therapy
CPT/HCPCS: 31500; 36415; 36600; 71045; 76770; 80048; 80053; 81001; 82533; 82550; 82805; 83605; 83735; 83880; 84484; 85025; 85610; 85730; 87040; 87070; 87086; 87205; 93005; 93306; 94002; 94003; 94640; 96365; 96366; 96367; 96368; 96375; 96376; 99291